=== PATIENT | male | born 1995 | race Two or more races ===

== ENCOUNTER 2019-01-27 16:10 | Inpatient (IN) ==
[2019-01-27] MEDS ORDERED: OPTIRAY 320 125ml IV PRN (17:26)
[2019-01-27 17:34] LABS: Basophils # (auto) 0.01 K/uL (0-0.2); Basophils % (auto) 0.1 %; Eosinophils # (auto) 0.18 K/uL (0-0.5); Eosinophils % (auto) 1.1 %; Hematocrit (blood only) 40.5 % (42-52); Hemoglobin 13.8 g/dL (14.0-18.0); Immature Granulocytes # (auto) 0.04 K/uL (0.00-0.02); Immature Granulocytes % (auto) 0.2 %; Lymphocytes # (auto) 1.16 K/uL (1.2-3.4); Lymphocytes % (auto) 7.2 %; Mean Corpuscular Hemoglobin 28.7 pg (25-34); Mean Corpuscular Hgb Conc 34.1 g/dL (32-36); Mean Corpuscular Volume 84.2 fL (80-100); Mean Platelet Volume 8.9 fL (7.4-10.4); Monocytes # (auto) 0.68 K/uL (0.11-0.59); Monocytes % (auto) 4.2 %; Neutrophils # (auto) 13.99 K/uL (1.4-6.5); Neutrophils % (auto) 87.2 %; Platelet Count 353 K/uL (130-400); RDW Coefficient of Variation 12.7 % (11.5-14.5); RDW Standard Deviation 38.7 fL (36.4-46.3); Red Blood Count 4.81 M/uL (4.7-6.1); White Blood Count 16.06 K/uL (4.8-10.8)
[2019-01-27 17:35] LABS: INR 1.2 (0.9-1.1)
--- NOTE | 2019-01-27 17:46 | CT Scan Report ---
CT angio chest PE protocol CT DOSE: 273.13 mGy.cm HISTORY: 23 years-old Male with Dyspnea, +dimer, Lingula pna vs abscess?. Acute shortness of breath with pneumonia TECHNIQUE: Multiple CTA images of the chest were obtained after the intravenous administration of 115 ml Optiray 320. Coronal and sagittal MIPS were obtained from the axial data set and were submitted for review. All measurements were obtained according to NASCET criteria. A dose lowering technique w as utilized adhering to the principles of ALARA. COMPARISON: None. FINDINGS: CTA: Heart is normal in size. Small pericardial effusion. Thoracic aorta is normal in course and caliber w ithout aneurysm or dissection. Patency of the imaged great vessels. Pulmonary arterial tree is opacif ied to the level of the subsegmental branches and demonstrates no focal filling defects suggest pulmo nary thromboembolic disease. Mild respiratory motion artifact limits evaluation of the left lung base . CT CHEST: Unremarkable thyroid. Residual thymic tissue of the anterior mediastinum. Pathologically enlarged pre vascular, AP window and left hilar lymph nodes measure up to 2.3 x 1.8 cm. There is no pneumothorax o r pleural effusion. There is a large area of multisegmental irregular consolidation involving the ant erior segment left upper lobe extending into the lingula which measures up to 8.0 x 6.9 x 11.2 cm and demonstrates multiple areas of central cavitation. There is an additional thick-walled cavitary nodu lar area of consolidation within the superior segment of the left lower lobe which measures 2.0 x 1.6 cm within the adjacent satellite consolidation. The large area of consolidation abuts the pleural montero rfaces and left mediastinal border. Right lung is generally clear. There is opacification of the infe rior lingular segmental bronchus. Adenopathy of the left epicardial fat pad distribution. Splenomegaly. Soft tissues are unremarkable. The bones appear to be intact. IMPRESSION: 1. Extensive multisegmental consolidation of the left upper lobe and lingula measures up to 11.2 cm i n greatest dimension and has multiple areas of central cavitation with additional smaller nodular are a of centrally cavitary consolidation noted involving the superior segment left lower lobe. Primary d ifferential consideration would include cavitary pneumonia such as post primary pulmonary tuberculosi s. Other possible noninfectious causative etiologies are considered less likely. Close clinical follo w-up is needed. 2. Pathologic mediastinal and left hilar adenopathy, likely reactive. 3. No pleural effusion or pneumothorax. 4. Splenomegaly. The above report was generated using voice recognition software. It may contain grammatical, syntax o r spelling errors. Electronically signed by: Tylor Gold M.D. 01/27/2019 5:45 PM
[2019-01-27 17:55] LABS: Alanine Aminotransferase 29 U/L (12-78); Albumin Level 3.6 gm/dl (3.4-5.0); Aspartate Aminotransferase 19 U/L (15-37); BUN Creatinine Ratio 11.2 (10-20); Blood Urea Nitrogen 11 mg/dl (7-18); Calcium 9.7 mg/dl (8.5-10.1); Carbon Dioxide 28 mmol/L (21-32); Chloride 99 mmol/L (98-107); Creatinine Clr Calc Pharmacy 90.5 ml/min; Est GFR (African American) 128.8; Est GFR (Non-African American) 111.1; Glucose 82 mg/dl (70-99); Potassium 3.5 mmol/L (3.5-5.1); Sodium 137 mmol/L (136-145)
[2019-01-27 18:00] LABS: Albumin Globulin Ratio 0.7 (0.9-2); Alkaline Phosphatase 107 U/L (45-117); Bilirubin,Total 0.4 mg/dl (0.2-1); Globulin 5.1 gm/dl (2.5-4.0); Total Protein 8.7 gm/dl (6.4-8.2); Troponin I < 0.015 ng/ml (0-0.045)
--- NOTE | 2019-01-27 19:41 | Emergency Department Note ---
Entered by Elisabeth Bella acting as a scribe for History of Present Illness General Chief complaint: Shortness of Breath/Dyspnea Stated complaint: CHEST PAINS,PNEUMONIA Source: patient Mode of arrival: ambulatory Limitations: no limitations History of Present Illness Onset (ago): month(s) 1 Location: chest Radiation: non-radiation Pain Consistency: + constant Relieved By: + none Exacerbated By: + none Associated symptoms: + chest pain, + cough, + loss of appetite and + other (- abdominal pain); no fever/chills Treatments prior to arrival: none The patient is a 23 year old male who presents to the ED with complaints of shortness of breath. He complains of a cough and chest pain for the past 1 to 2 months. The cough is non-productive. He denies any recent fevers or abdominal pain. He does admit to a loss of appetite. He denies any known allergies to medicine. He reports he had an X-Ray back home in [facility] at the end of the summer that was normal. He is a non-smoker. Earlier this afternoon, the patient went to [facility] on campus and had a Chest X-ray that was concerning for pneumonia, so he was referred here to the ED. Home Medications Home Medications Medication Instructions Recorded Confirmed Type Inhaler Prn 1 dose INHALATION UNKNOWN PRN 01/27/19 01/27/19 History Allergies Allergy/AdvReac Type Severity Reaction Status Date / Time No Known Drug Allergies Allergy Unknown Unverified 01/27/19 17:32 Past Med/Surg History Medical History Shellfish allergy Social History Feels Safe at Home: Yes Smoking Status: Never smoker Review of Systems See HPI for pertinent positives & negatives. and A total of 10 systems reviewed and were otherwise negative Physical Exam Vital Signs Vital Signs - 24 hr 01/27/19 16:15 01/27/19 16:45 01/27/19 16:46 Temperature 36.7 C Temperature Source Oral Sepsis Recent Fever Within 48 Hours No Sepsis New/Unexplained Change in Mental Status No Sepsis Action Taken by Nursing No Action Required Pulse Rate 92 H Respiratory Rate 20 Respiratory Effort / Characteristics Non-Labored Blood Pressure 137/81 Blood Pressure Mean 99 Blood Pressure Position Sitting Pulse Oximetry 96 97 Oxygen Delivery Method Room Air 01/27/19 16:47 Temperature Temperature Source Sepsis Recent Fever Within 48 Hours Sepsis New/Unexplained Change in Mental Status Sepsis Action Taken by Nursing Pulse Rate Respiratory Rate Respiratory Effort / Characteristics Blood Pressure Blood Pressure Mean Blood Pressure Position Pulse Oximetry 97 Oxygen Delivery Method Room Air GENERAL: Awake, alert, well-appearing, in no distress HENT: Normocephalic, atraumatic. EYES: Normal conjunctiva. Sclera non-icteric. NECK: Supple. No nuchal rigidity. RESPIRATORY: No wheezes. Normal respiratory effort. CARDIAC: Normal rate. Normal rhythm. Extremities warm and well perfused. GI: Soft, non-distended. No tenderness to palpation. RECTAL: Deferred. MUSCULOSKELETAL: Atraumatic. Chest examination reveals no tenderness. LOWER EXTREMITIES: Calves are equal size bilaterally and non-tender. No edema NEURO: Normal sensorium. No sensory or motor deficits noted. No facial droop. SKIN: Warm and dry. No rash or jaundice noted. Course 1621: The patient was evaluated in room C6 and a complete history and physical were performed. 175: I [facility] the patients [facility] The patient will be further evaluated. 175: I reevaluated the patient. He is resting comfortably. I discussed my recommendation that he be further evaluated by the hospital medicine team and he verbalized complete understanding and agreement. Consultations Consultation #1: I discussed the patients case with Jordan Barragan [facility]. The patient will be further evaluated. Administered Medications Ioversol (Optiray 320 125ml) 115 ml IV ONCE PRN PRN Reason: Interaction Checking Stop: 01/31/19 17:25 Last Admin: 01/27/19 17:26 Dose: 115 ml Documented by: [id number] Medical Decision Making Differential Diagnosis Differential diagnoses includes but is not limited to acute coronary syndrome, myocardial infarction, pericarditis, pulmonary embolus, aortic dissection, pneumonia, pneumothorax, musculoskeletal, shingles, esophageal. Medical Records Attestation: I reviewed the patient's medical records. Home Medications Current Medication List: was personally reviewed by me Laboratory Data Attestation: I reviewed the patient's lab results. Result diagrams: 01/27/19 17:01 01/27/19 17:01 Lab Results 01/27/19 01/27/19 01/27/19 Range/Units 17:01 17:01 17: WBC 16.06 H (4.8-10.8) K/uL RBC 4.81 (4.7-6.1) M/uL Hgb 13.8 L (14.0-18.0) g/dL Hct 40.5 L (42-52) % MCV 84.2 (80-100) fL MCH 28.7 (25-34) pg MCHC 34.1 (32-36) g/dL RDW Std Deviation 38.7 (36.4-46.3) fL RDW Coeff of Renetta 12.7 (11.5-14.5) % Plt Count 353 (130-400) K/uL MPV 8.9 (7.4-10.4) fL Immature Gran % (Auto) 0.2 % Neut % (Auto) 87.2 % Lymph % (Auto) 7.2 % [place] % (Auto) 4.2 % Eos % (Auto) 1.1 % Baso % (Auto) 0.1 % Immature Gran # (Auto) 0.04 H (0.00-0.02) K/uL Neut # (Auto) 13.99 H (1.4-6.5) K/uL Lymph # (Auto) 1.16 L (1.2-3.4) K/uL [place] # (Auto) 0.68 H (0.11-0.59) K/uL Eos # (Auto) 0.18 (0-0.5) K/uL Baso # (Auto) 0.01 (0-0.2) K/uL PT 12.0 (9.0-12.0) Seconds INR 1.2 H (0.9-1.1) Sodium 137 (136-145) mmol/L Potassium 3.5 (3.5-5.1) mmol/L Chloride 99 (98-107) mmol/L Carbon Dioxide 28 (21-32) mmol/L Anion Gap 10.0 (3-11) BUN 11 (7-18) mg/dl Creatinine 0.97 (0.6-1.4) mg/dl Est Cr Clr Drug Dosing 90.5 ml/min Est GFR ( Amer) 128.8 Est GFR (Non-Af Amer) 111.1 BUN/Creatinine Ratio 11.2 (10-20) Glucose 82 (70-99) mg/dl POC Lactic Acid Villa (0.90-1.70) mmol/L Calcium 9.7 (8.5-10.1) mg/dl Total Bilirubin 0.4 (0.2-1) mg/dl AST 19 (15-37) U/L ALT 29 (12-78) U/L Alkaline Phosphatase 107 (45-117) U/L Troponin I < 0.015 (0-0.045) ng/ml Total Protein 8.7 H (6.4-8.2) gm/dl Albumin 3.6 (3.4-5.0) gm/dl Globulin 5.1 H (2.5-4.0) gm/dl Albumin/Globulin Ratio 0.7 L (0.9-2) 01/27/19 Range/Units 17:15 WBC (4.8-10.8) K/uL RBC (4.7-6.1) M/uL Hgb (14.0-18.0) g/dL Hct (42-52) % MCV (80-100) fL MCH (25-34) pg MCHC (32-36) g/dL RDW Std Deviation (36.4-46.3) fL RDW Coeff of Renetta (11.5-14.5) % Plt Count (130-400) K/uL MPV (7.4-10.4) fL Immature Gran % (Auto) % Neut % (Auto) % Lymph % (Auto) % [place] % (Auto) % Eos % (Auto) % Baso % (Auto) % Immature Gran # (Auto) (0.00-0.02) K/uL Neut # (Auto) (1.4-6.5) K/uL Lymph # (Auto) (1.2-3.4) K/uL [place] # (Auto) (0.11-0.59) K/uL Eos # (Auto) (0-0.5) K/uL Baso # (Auto) (0-0.2) K/uL PT (9.0-12.0) Seconds INR (0.9-1.1) Sodium (136-145) mmol/L Potassium (3.5-5.1) mmol/L Chloride (98-107) mmol/L Carbon Dioxide (21-32) mmol/L Anion Gap (3-11) BUN (7-18) mg/dl Creatinine (0.6-1.4) mg/dl Est Cr Clr Drug Dosing ml/min Est GFR ( Amer) Est GFR (Non-Af Amer) BUN/Creatinine Ratio (10-20) Glucose (70-99) mg/dl POC Lactic Acid Villa 1.60 (0.90-1.70) mmol/L Calcium (8.5-10.1) mg/dl Total Bilirubin (0.2-1) mg/dl AST (15-37) U/L ALT (12-78) U/L Alkaline Phosphatase (45-117) U/L Troponin I (0-0.045) ng/ml Total Protein (6.4-8.2) gm/dl Albumin (3.4-5.0) gm/dl Globulin (2.5-4.0) gm/dl Albumin/Globulin Ratio (0.9-2) Imaging Data Radiologist's Impression: Radiology results as stated below per my review and the radiologist's interpretation: CT angio chest PE protocol CT DOSE: 273.13 mGy.cm HISTORY: 23 years-old Male with Dyspnea, +dimer, Lingula pna vs abscess?. Acute shortness of breath with pneumonia TECHNIQUE: Multiple CTA images of the chest were obtained after the intravenous administration of 115 ml Optiray 320. Coronal and sagittal MIPS were obtained from the axial data set and were submitted for review. All measurements were obtained according to NASCET criteria. A dose lowering technique was utilized adhering to the principles of ALARA. COMPARISON: None. FINDINGS: CTA: Heart is normal in size. Small pericardial effusion. Thoracic aorta is normal in course and caliber without aneurysm or dissection. Patency of the imaged great vessels. Pulmonary arterial tree is opacified to the level of the subsegmental branches and demonstrates no focal filling defects suggest pulmonary thromboembolic disease. Mild respiratory motion artifact limits evaluation of the left lung base. CT CHEST: Unremarkable thyroid. Residual thymic tissue of the anterior mediastinum. Pathologically enlarged prevascular, AP window and left hilar lymph nodes measure up to 2.3 x 1.8 cm. There is no pneumothorax or pleural effusion. There is a large area of multisegmental irregular consolidation involving the anterior segment left upper lobe extending into the lingula which measures up to 8.0 x 6.9 x 11.2 cm and demonstrates multiple areas of central cavitation. There is an additional thick-walled cavitary nodular area of consolidation within the superior segment of the left lower lobe which measures 2.0 x 1.6 cm within the adjacent satellite consolidation. The large area of consolidation abuts the pleural surfaces and left mediastinal border. Right lung is generally clear. There is opacification of the inferior lingular segmental bronchus. Adenopathy of the left epicardial fat pad distribution. Splenomegaly. Soft tissues are unremarkable. The bones appear to be intact. IMPRESSION: 1. Extensive multisegmental consolidation of the left upper lobe and lingula measures up to 11.2 cm in greatest dimension and has multiple areas of central cavitation with additional smaller nodular area of centrally cavitary consolidation noted involving the superior segment left lower lobe. Primary differential consideration would include cavitary pneumonia such as post primary pulmonary tuberculosis. Other possible noninfectious causative etiologies are considered less likely. Close clinical follow-up is needed. 2. Pathologic mediastinal and left hilar adenopathy, likely reactive. 3. No pleural effusion or pneumothorax. 4. Splenomegaly. The above report was generated using voice recognition software. It may contain grammatical, syntax or spelling errors. Electronically signed by: Tylor Gold M.D. 01/27/2019 5:45 PM ECG Data Attestation: I personally reviewed and interpreted this ECG as follows: Indication: SOB/dyspnea Rate (beats per minute): 80 Rhythm: sinus rhythm Findings: + other (Normal intervals, LVH changes); no PVC Blood Pressure Blood Pressure Findings: Elevated blood pressure Blood Pressure Disposition: further management by hospitalist AMBREEN Mcqueen Patient is a 23-year-old gentleman presenting today with concerns for pneumonia and possible abscess. Patient states for the past 2 to 3 months he has had a cough with some shortness of breath. Difficulty sleeping due to the pain and the cough. Emergency health service did a chest x-ray with concern for pneumonia and possible abscess and here for further evaluation. Patient is afe brile and not hypoxic upon initial evaluation. Patient has no significant medical history. Travel to [place] but symptoms started before that. Endorses weight loss. Outside chest x-ray noted with large left inguinal pna, ?cavity. Basic labs and blood cultures and lactate were obtained. Patient appear grossly septic. Concern for possible cancerous process versus pneumonia/TB versus abscess. CT of the chest was completed to exclude PE among those diagnoses. No significant lactate elevation. Patient does have a leukocytosis of 16. CT scan shows evidence of multisegmental consolidation left upper lobe and lingula measuring 11.2 cm with areas of cavitation. Concern for possible cavitary pneumonia. No evidence of PE. Discussed with radiology. Concern for tuberculosis. Placed in isolation. Hospitalist alerted. Will defer empiric antibiotics at this time pending further cultures given his stable status. Updated the patient. Impression & Plan Left upper lobe pneumonia, Concern about pulmonary TB without diagnosis Discharge Plan Visit Data Chief Complaint: Shortness of Breath/Dyspnea Stated Complaint: CHEST PAINS,PNEUMONIA ED Provider: Wilfred Yu Discharge Problem: Left upper lobe pneumonia, Concern about pulmonary TB without diagnosis Patient Disposition: Being Evaluated by Hospitalist Forms Stand Alone Forms: [facility] Prescriptions Prescriptions: No Action Inhaler Prn 0 mg 1 dose inhalation UNKNOWN PRN (Reason: Shortness Of Breath) RF: 0 Referrals Referrals: PCP,NO [Primary Care Provider] - The scribe's documentation has been prepared under my direction and personally reviewed by me in its entirety. I confirm that the note above accurately reflects all work, treatment, procedures, and medical decision making performed by me.
[2019-01-27] MEDS ORDERED: POTASSIUM CHLORIDE 20 MEQ TABCR PO STA (20:15)
[2019-01-27] MEDS ORDERED: MAGNESIUM CHLORIDE 64MG DELAYED REL TAB PO STA (20:15)
--- NOTE | 2019-01-27 21:03 | History & Physical Report ---
Date of Service January 27, 2019 Assessment & Plan (1) Left upper lobe pneumonia: 23-year-old male with no significant past history presents with 4 months of chest pain with inspiration and cough. Patient is a citizen of [place], no known sick contacts, but CT of the chest concerning for tuberculosis with left upper lobe consolidation and cavitary lesions. Pneumonia, concern for pulmonary TB Patient is nontoxic, white count within normal limits, afebrile CT showed left upper lobe consolidation cavitary lesions Infectious disease consulted, appreciate recommendations Will not be starting the patient on antibiotics until source is known N.p.o. for possible bronc tomorrow Continue supportive treatment: IV fluids, Tylenol for fever DVT prophylaxisSCDs, ambulation FENregular diet, n.p.o. after midnight CODE STATUSfull (2) Concern about pulmonary TB without diagnosis: History of Present Illness Primary Care Provider: NO PCP 23-year-old no significant past medical history presents with chest pain, worse with coughing. He states that the symptoms have been ongoing over the past 4 months. During this duration, he is also had significant weight loss and has had night sweats. He also describes a sore throat patient. Denies hemoptysis. Patient is a citizen of [place]. He is here as a student. He denies smoking whatsoeverno tobacco, marijuana, no electronic smoking devices. He lives with roommates. He denies any sick contacts or any other known sick individuals. Allergies Allergy/AdvReac Type Severity Reaction Status Date / Time No Known Drug Allergies Allergy Unknown Unverified 01/27/19 17:32 Home Medications Home Medications Medication Instructions Recorded Confirmed Type Inhaler Prn 1 dose INHALATION UNKNOWN PRN 01/27/19 01/27/19 History Past Med/Surg History Medical History Shellfish allergy Social History Feels Safe at Home: Yes Smoking Status: Never smoker Review of Systems Constitutional: + sweats, + fatigue, + weakness and + weight loss; no fever and no chills Eyes: no loss of peripheral vision and no worsening vision Ear, Nose, Mouth, Throat: + sore throat; no nasal discharge and no sinus pain/pressure Respiratory: + cough and + pain with cough; no hemoptysis, no sputum production and no wheezing Cardiovascular: + chest pain; no palpitations and no edema Gastrointestinal: no abdominal pain, no nausea and no vomiting Poor appetite Genitourinary: no dysuria and no nocturia Integumentary: + non-healing lesions (On back ) Physical Exam Constitutional: + ill appearing and + thin; no acute distress Eyes: PERRL, conjunctivae normal, anicteric sclerae ENMT: external ear and nose normal, oropharynx normal Neck: trachea midline, no thyromegaly Respiratory: normal respiratory effort, lungs clear to auscultation Auscultation: + rales (Left upper lung quintanilla) Cardiovascular: RRR, no murmur, no edema Gastrointestinal (Abdomen): normal bowel sounds, soft, nontender, no hepatosplenomegaly Musculoskeletal: no cyanosis or clubbing, extremities motor strength 5/5 Skin: + lesion (2 erythematous macules with ulceration and excoriation on back) Neurologic: PERRL, EOMI, accommodation nl, no face palsy, no dysarthria Psychiatric: A+Ox3, euthymic affect Results & Data Vital Signs (Past 12 Hours) Vital Signs Temp Pulse Resp BP Pulse Ox 01/27/19 16:47 97 01/27/19 16:46 97 01/27/19 16:15 36.7 C 92 H 20 137/81 96 Code Status & VTE Plan VTE Prophylaxis Plan VTE Prophylaxis will be ordered: Yes Supervising Physician Co-Signing Physician Notes Patient seen and examined, chart reviewed, case discussed with Dr. Blue and I agree with his assessment and plan as documented above. Briefly, patient is a 23-year-old male with no significant past medical or surgical history presenting with 4 months of chest discomfort, cough and weight loss. 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 He has been in this country for 3 years. Returns frequently to [place] [facility] on breaks. He lives [place] area in [place] [facility] [place]. No close personal contacts with tuberculosis, homelessness or incarceration. No personal history of homelessness or incarceration. Patient believes he was administered the BCG vaccine prior to coming to the [place]. He reports being seen by physician in [place] [facility] approximately 4 months ago and was told that he has a "bacterial infection". He was given pills which he completed. Does not feel like he fully recovered. Presently with no additional complaints On exam he is afebrile, slightly tachycardic at 103 bpm otherwise stable, respiratory rate of 20 saturating 96% on room air. No respiratory distress. No cough. No hemoptysis. Nontoxic in appearance Skin: 2 circular, well-circumscribed lesions on his back with skin flaking and erythema HEENT: Normocephalic atraumatic, pupils equal round reactive to light, neck supple, moist mucous membranes, dentition intact, trachea midline, no lymphadenopathy Heart: S1-S2 present, regular, tachycardic, no murmurs rubs or gallops Lungs: Equal air entry bilaterally, mildly diminished in left apex with faint crackles otherwise unremarkable Abdomen: Bowel sounds present, soft, nontender, nondistended Extremities: Warm, well-perfused, no clubbing/cyanosis/edema Labs and images reviewed. Significant for neutrophil predominant leukocytosis with WBC = 16.06 (he bands, neutrophils, low lymphocytes, high monocytes) normochromic normocytic anemia with hemoglobin = 13.8, hematocrit = 40.5, total protein and globulin CTA of the chest with extensive multisegmental consolidation of the left upper lobe and lingula measuring up to 11.2 cm in the greatest dimension with multiple areas of cavitation with additional smaller nodular area of centrally cavitary consolidation noted involving the superior segment of left lower lobe. Also with pathologic mediastinal left hilar adenopathy Assessment/plan. 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 Differential to include pulmonary tuberculosis, MAC, fungal infection, actinomyces, less likely nocardia, staph, malignancy -Admit to medical floor, airborne precautions -Sputum for AFB x3 -Pulmonary consultationappreciate assistance. We will keep n.p.o. for possible bronchoscopy -ID consultationappreciate assistance -Remainder of plan as above PG Care Time/CCT Total # of Minutes Spent Total Time Spent with Patient: Total time spent is greater than 50% in coordination of care (as documented) at patient's floor/unit and/or counseling patient: Resident Activity Tracking Resident Involvement: Resident Care Provided Care Provided: Adult [facility] Medicine
[2019-01-27] MEDS ORDERED: ACETAMINOPHEN 325 MG TAB PO PRN (22:27)
[2019-01-27] MEDS ORDERED: ONDANSETRON INJ 2 MG/ML 2 ML VIAL IV PRN (22:27)
[2019-01-27] MEDS ORDERED: POLYETHYLENE (MIRALAX) 17 GM PACK PO PRN (22:27)
[2019-01-27] MEDS: SODIUM CHLORIDE 0.9% 1000ML 1,000 ML IV SCH (23:51)
[2019-01-28] MEDS ORDERED: INFLUENZA VIRUS QUAD VACCINE 0.5 ML SYR IM ONE (01:00)
[2019-01-28] MEDS ORDERED: INFLUENZA ADMINISTRATION CHARGE ONE (01:00)
[2019-01-28] MEDS: SODIUM CHLORIDE 0.9% 1000ML 1,000 ML IV SCH ×2 (06:13→14:46)
[2019-01-28 08:05] LABS: Basophils # (auto) 0.03 K/uL (0-0.2); Basophils % (auto) 0.2 %; Eosinophils # (auto) 0.42 K/uL (0-0.5); Eosinophils % (auto) 3.4 %; Hematocrit (blood only) 37.2 % (42-52); Hemoglobin 12.8 g/dL (14.0-18.0); Immature Granulocytes # (auto) 0.03 K/uL (0.00-0.02); Immature Granulocytes % (auto) 0.2 %; Lymphocytes # (auto) 1.67 K/uL (1.2-3.4); Lymphocytes % (auto) 13.7 %; Mean Corpuscular Hemoglobin 28.8 pg (25-34); Mean Corpuscular Hgb Conc 34.4 g/dL (32-36); Mean Corpuscular Volume 83.8 fL (80-100); Mean Platelet Volume 8.5 fL (7.4-10.4); Monocytes # (auto) 1.06 K/uL (0.11-0.59); Monocytes % (auto) 8.7 %; Neutrophils # (auto) 9.02 K/uL (1.4-6.5); Neutrophils % (auto) 73.8 %; Platelet Count 332 K/uL (130-400); RDW Coefficient of Variation 12.8 % (11.5-14.5); RDW Standard Deviation 38.8 fL (36.4-46.3); Red Blood Count 4.44 M/uL (4.7-6.1); White Blood Count 12.23 K/uL (4.8-10.8)
[2019-01-28 08:31] LABS: BUN Creatinine Ratio 9.5 (10-20); Calcium 9.1 mg/dl (8.5-10.1); Creatinine Clr Calc Pharmacy 90.9 ml/min; Est GFR (African American) 124.1; Est GFR (Non-African American) 107.1; Potassium 4.5 mmol/L (3.5-5.1)
--- NOTE | 2019-01-28 09:25 | Infectious Disease Consult ---
Date of Consultation January 28, 2019 Assessment & Plan (1) Cavitary pneumonia: Highly concerning for TB. will check IGRA, uric acid and HIV due to concern for TB. Will order AFB sputum x 3 - not done to date. NPO for bronch, unsure if scheduled. Will hold abx until sputum cultures, AFB cultures obtained. Discussed at length with patient regarding need for isolation while TB diagnosis is being pursued, he is agreeable. I spoke with [facility] as well. Thursday, 01/31 is holiday and no [facility] employees will be available for ongoing med administration, etc until Thursday 02/01. He will likely need to remain inpatient until then. He is agreeable. will follow. History of Present Illness Attending Physician: Ebonie Sanchez MD pt admitted with 4 month h/o chest pain, intermittent cough, no hemoptysis, wt loss 10 lb in 1 month, intermittent night sweats and generalized malaise. Denies f/c at home. 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 He denies sick contacts. He is originally from [facility] - family is there. He denies any previous testing for TB as screen in the past. He denies any known TB contacts. he is on no meds, NKDA. currently on no abx. blood cultures pending, wbc 16 in ER, 12 today. CTA done in ER and revealed large L lung consolidation [id number] with several areas of cavitation. Also several enlarged nodes. he denies any lymphadenopathy. afebrile since admission. NPO for possible bronch. LFTs normal. Currently no cp, but admits to pleuritic cp, no sob, no juarez, no abd pain, no n/v/d. no gu symptoms. Allergies Allergy/AdvReac Type Severity Reaction Status Date / Time No Known Drug Allergies Allergy Unknown Unverified 01/27/19 17:32 shellfish derived Allergy Swelling Verified 01/28/19 06:23 of Lip/Tongue/Throat Home Medications Home Medications Medication Instructions Recorded Confirmed Type Inhaler Prn 1 dose INHALATION UNKNOWN PRN 01/27/19 01/27/19 History Patient History Medical History Shellfish allergy Social History (Reviewed 01/28/19 @ 09:21 by WILLIAM Pabon Preferred Language: Occitan Communication Ability: Effective Edger Feeder Required: No Beliefs That Will Affect Care: None Current Living Situation: Other Current Living Situation Comment: Lives in an apartment complex with roommates. Other Information That Helps Us Care for You: No Feels Safe at Home: Yes Smoking Status: Never smoker Hx Alcohol Use: No Hx Substance Use: No Review of Systems Review of Systems: All systems reviewed & are unremarkable except as noted in HPI & below Physical Exam Constitutional: WD/WN, vitals as above Eyes: PERRL, conjunctivae normal, anicteric sclerae ENMT: external ear and nose normal, oropharynx normal Neck: normal visual inspection Respiratory: normal respiratory effort, lungs clear to auscultation Cardiovascular: RRR, no murmur, no edema Gastrointestinal (Abdomen): normal bowel sounds, soft, nontender, no hepatosplenomegaly Musculoskeletal: no cyanosis or clubbing, extremities motor strength 5/5 Skin: no rashes, warm and dry Psychiatric: A+Ox3, euthymic affect Results & Data Vital Signs (Past 12 Hours) Vital Signs Temp Pulse Resp BP Pulse Ox 01/28/19 07:24 36.8 C 78 17 107/64 98 01/27/19 21:40 37.1 C 80 16 118/81 01/27/19 21:20 103 H 20 130/78 96 PG Care Time/CCT Total # of Minutes Spent Total Time Spent with Patient: Total time spent is greater than 50% in coordination of care (as documented) at patient's floor/unit and/or counseling patient:
[2019-01-28] MEDS ORDERED: PIPERACILL/TAZOBAC CONSULT ACTIVE PRN (10:37)
[2019-01-28] MEDS ORDERED: VANCOMYCIN CONSULT ACTIVE PRN (10:37)
[2019-01-28] MEDS ORDERED: PIPERACILLIN/TAZOBACTAM 3.375 GM in DEXTROSE 5% 100 ML IV ONE (10:45)
[2019-01-28] MEDS ORDERED: VANCOMYCIN HCL 1,500 MG in SODIUM CHLORIDE 0.9% 500 ML IV ONE (11:00)
--- NOTE | 2019-01-28 11:42 | Pulmonary Consultation ---
Date of Consultation January 28, 2019 Assessment & Plan (1) Cavitary pneumonia: This is a 23-year-old male from [place] [facility] with a 4-month history of chest pain and pneumonia. He was treated for pneumonia in [place] with tablets. Treatment course was unknown. Patient Presented to the emergency department for evaluation secondary to urging from mother who is currently in [place] [facility].Patient was found to have multiple cavitary lesions and left upper lobe involvement on CT scan of the chest. Infectious diseases on board and following the patient. Department of Health is aware of possible tuberculosis. MorningSputum for AFB x3 has been ordered QuantiFERON gold has been sent to reference lab for evaluation Immunology and serology testing has been requested to rule out vasculitis At this point we will defer on bronchoscopy until the AFB x3 from sputum has been ruled out as negative Start Zosyn and vancomycin Check sputum culture and sensitivity No hypoxia No significant B type symptoms Will continue to follow expectantly Thank you very much for including us in the care of this patient. We will continue to follow along. Please refer to Dr. Jimenes's addendum for further recommendations. Supervising Physician Co-Signing Physician Notes Await AFB smears. If negative, will proceed with bronchoscopy with BAL and possible biopsy. Still a possibility of malignancy, but less likely. Please send PERRI screen, C-ANCA and U/A to rule out possibility of vasculitis. Would treat for GPC and anaerobic organisms as well with Zosyn. Possibility of atypical infections such as nocardia, actino, etc remains. Airborne precautions required. History of Present Illness Attending Physician: Ebonie Sanchez MD History of Present Illness Attending: Dr. Jimenes Patient seen and examined with Dr. Jimenes.This is a 23-year-old male from [place] [facility] that is currently at [employer] as a student. He has been in [facility] for 3 years with intermittent trips back to [facility]. He reports a 4-month history of chest pain. This was worked up in [place] and was negative for any cardiac etiology.Patient states that he was started on tablets for what appeared to be a bacterial infection, but he does not know what those tablets were. He claims he had BCG vaccination in [place] [facility].He has no family history of personal history of tuberculosis.He denies any hemoptysis, fever, chills, sweats night sweats.He has no specific productive sputum. He still has intermittent chest pain which is over the left upper lobe.He has no other acute complaints. On exam he has no lymphadenopathy and patient denies any history of lymphadenopathy.He has no epistaxis and no hematuria.The patient does have a 5 kg weight loss over the last 30 days. He reports this being a result of poor appetite. He has no nausea or vomiting or diarrhea.The patient has no other sick contacts. Allergies Allergy/AdvReac Type Severity Reaction Status Date / Time No Known Drug Allergies Allergy Unknown Unverified 01/27/19 17:32 shellfish derived Allergy Swelling Verified 01/28/19 06:23 of Lip/Tongue/Throat Home Medications Home Medications Medication Instructions Recorded Confirmed Type Inhaler Prn 1 dose INHALATION UNKNOWN PRN 01/27/19 01/27/19 History Patient History Medical History Shellfish allergy No significant past medical history Surgical History No history of previous surgery Family History Other Family history non-contributory Social History Preferred Language: Irish Communication Ability: Effective Manager Primary Care Required: No Beliefs That Will Affect Care: None Current Living Situation: Other Current Living Situation Comment: Lives in an apartment complex with roommates. Other Information That Helps Us Care for You: No Feels Safe at Home: Yes Smoking Status: Never smoker Hx Alcohol Use: No Hx Substance Use: No Immunizations: BCG in [place] Review of Systems Review of Systems: All systems reviewed & are unremarkable except as noted in HPI & below Physical Exam Physical Exam: GENERAL : No acute distress. Pleasant EYES: No icterus, gaze conjugate NOSE: No evidence of epistaxis MOUTH: No lesions or candidiasis. Mucosa moist.Tongue midline. NECK: Supple. No cervical lymphadenopathy LUNGS: Minimal rhonchi in the left upper lobe. No basilar crackles. No bronchospasm appreciated. HEART: Regular, rate controlled ABDOMEN: Soft, NT, ND, BS Present EXTREMITIES: No LE edema, pedal pulses intact. No appreciation of lymphadenopathy in the axillary inguinal or supraclavicular regions. NEURO: A&OX3 Results & Data Vital Signs (Past 12 Hours) Vital Signs Temp Pulse Resp BP Pulse Ox 01/28/19 07:24 36.8 C 78 17 107/64 98 Laboratory Results 01/28/19 07:55 01/28/19 07:[address] angio chest PE protocol CT DOSE: 273.13 mGy.cm HISTORY: 23 years-old Male with Dyspnea, +dimer, Lingula pna vs abscess?. Acute shortness of breath with pneumonia TECHNIQUE: Multiple CTA images of the chest were obtained after the intravenous administration of 115 ml Optiray 320. Coronal and sagittal MIPS were obtained from the axial data set and were submitted for review. All measurements were ob tained according to NASCET criteria. A dose lowering technique was utilized adhering to the principles of ALARA. COMPARISON: None. FINDINGS: CTA: Heart is normal in size. Small pericardial effusion. Thoracic aorta is normal in course and caliber without aneurysm or dissection. Patency of the imaged great vessels. Pulmonary arterial tree is opacified to the level of the subsegmental branches and demonstrates no focal filling defects suggest pulmonary thromboembolic disease. Mild respiratory motion artifact limits evaluation of the left lung base. CT CHEST: Unremarkable thyroid. Residual thymic tissue of the anterior mediastinum. Pathologically enlarged prevascular, AP window and left hilar lymph nodes measure up to 2.3 x 1.8 cm. There is no pneumothorax or pleural effusion. There is a large area of multisegmental irregular consolidation involving the anterior segment left upper lobe extending into the lingula which measures up to 8.0 x 6.9 x 11.2 cm and demonstrates multiple areas of central cavitation. There is an additional thick-walled cavitary nodular area of consolidation within the superior segment of the left lower lobe which measures 2.0 x 1.6 cm within the adjacent satellite consolidation. The large area of consolidation abuts the pleural surfaces and left mediastinal border. Right lung is generally clear. There is opacification of the inferior lingular segmental bronchus. Adenopathy of the left epicardial fat pad distribution. Splenomegaly. Soft tissues are unremarkable. The bones appear to be intact. IMPRESSION: 1. Extensive multisegmental consolidation of the left upper lobe and lingula measures up to 11.2 cm in greatest dimension and has multiple areas of central cavitation with additional smaller nodular area of centrally cavitary consolidation noted involving the superior segment left lower lobe. Primary differential consideration would include cavitary pneumonia such as post primary pulmonary tuberculosis. Other possible noninfectious causative etiologies are considered less likely. Close clinical follow-up is needed. 2. Pathologic mediastinal and left hilar adenopathy, likely reactive. 3. No pleural effusion or pneumothorax. 4. Splenomegaly. Electronically signed by: Tylor Gold M.D. 01/27/2019 5:45 PM PG Care Time/CCT Total # of Minutes Spent Total Time Spent with Patient: Total time spent is greater than 50% in coordinat ion of care (as documented) at patient's floor/unit and/or counseling patient:45
--- NOTE | 2019-01-28 12:37 | Pharmacy Report ---
Pharmacy Abx Initial Consult - Date of Service January 28, 2019 - Pharmacy Dosing Scope Date of Consult: 01/28/19 Consultation requested by: Dr. Sanchez Pharmacy is consulted to initiate Vancomycin IV dosing therapy, order appropriate labs and adjust drug dose/frequency. - Subjective The patient is a 23 year old M admitted on 01/27/19 19:21 with 4 month history of chest pain and cough. 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 He has been in [facility] for 3 years with intermittent trips back to [facility]. Patient states that he was started on tablets for what appeared to be a bacterial infection, but he does not know what those tablets were. - Objective Height: 5 ft 6 in Weight: 55 kg Vital Signs (Past 12hrs): Vital Signs Temp Pulse Resp BP Pulse Ox 01/28/19 07:24 36.8 C 78 17 107/64 98 Lab Results (24hrs): Laboratory Tests (24 Hours) 01/28/19 01/28/19 01/27/19 07:55 07:55 17:01 WBC 12.23 H Neut # (Auto) 9.02 H Creatinine 1.00 0.97 Est Cr Clr Drug Dosing 90.9 90.5 01/27/19 17:01 WBC 16.06 H Neut # (Auto) 13.99 H Creatinine Est Cr Clr Drug Dosing Micro Results: 01/27/19 17:01 Aerobic Blood Culture - Pending Blood Anaerobic Blood Culture - Pending 01/27/19 16:44 Aerobic Blood Culture - Pending Blood Anaerobic Blood Culture - Pending - Risk Factors for Resistance * Antimicrobial use within the last 90 days - pt states using tablets, likely antibiotic, but does not know what it was - Assessment & Plan Assessment 23 year old M with left upper lobe pneumonia, possible TB. ID consult, pulm consult. Blood cultures pending. HIV negative TB tests pending Plan Vancomycin and Zosyn for treatment of pneumonia, possible TB. Vancomycin IV * Estimated PK Parameters: Vd 0.7 L/kg, Hermes 0.079 hr-1, t1/2 8.7 hr * Loading dose: 1500 mg (27 mg/kg) * Maintenance dose: 1000 mg IV ( 18mg/kg) every 8 hours * Goal trough level for pneumonia : 15 to 20 mcg/mL * Trough level ordered for 01/29/19 Piperacillin/tazobactam * 3.375 g bolus administered over 30 minutes, then 3.375 g IV extended infusion every 8 hours for CrCl greater than 20 mL/min Pharmacy will continue to follow and will adjust dose/frequency as necessary. Thank you.
--- NOTE | 2019-01-28 14:50 | Hospitalist Progress Note ---
Date of Service January 28, 2019 Assessment & Plan (1) Cavitary pneumonia: Pt is a 23-year-old male with a history of eczema who presents with 4 months of chest pain with inspiration and cough. Patient is a citizen of [place], no known sick contacts, but CT of the chest with left upper lobe consolidation and cavitary lesions. Concern for pulmonary TB vs other anaerobic infection, Nocardia, Actinomyces, Vasculitis, Malignancy in differential Has a h/o BCG vaccine in childhood and exposure to a Grandfather with active TB years ago Here with night sweats, weight loss, leukocytosis, no known fevers Also with splenomegaly and skin rash on back, unclear if related HIV neg -collect sputum for AFB smear x 3 -check Quantiferon Gold -Pulm consult appreciated-no bronch unless AFB sputum negative. Also recommends checking sputum culture, PERRI, C-ANCA, UA -start Zosyn and Vanco to cover for anaerobic organisms, MRSA -Appreciate ID consultation -follow BCxs -follow CBC Continue supportive treatment, Tylenol for fever -Health Dept contacted by ID -airborne precautions (2) Rash: 2 maculopapular patches on back x 3 months with pruritis Appear rounded and atypical for eczema -discussed with DERM, Dr. Hernández-he will see the patient on Thursday-will place consult Sun evening -no signs of cellulitis -could be fungal, Nocardia, inflammatory? (3) Leukocytosis: WBC count 16 on admission and now down to 12k, improving -follow CBC Likely related to illness (4) Concern about pulmonary TB without diagnosis: as above -checking TB Gold, AFB (5) Splenomegaly: Noted on CT Chest Cannot palpate spleen on exam Likely related to ongoing likely infectious process but could be related to lymphoma, TB, autoimmune disorder, viral infection -follow clinically, consider US of spleen (6) DVT prophylaxis: DVT prophylaxisSCDs, ambulation Dispo-remain hospitalized until TB ruled out Subjective Pt reports some cough but not bringing up sputum, no hemoptysis. He reports drenching night sweats for several months. No headache or vision changes. He does report +sore throat. No neck pain. Denies SOB, no abd pain, no difficulty with urinating or moving his bowels. He is eating well. He has had a skin rash that is itchy on his back for several months that he has been scratching and applying moisturizer. He has a h/o eczema. Denies sexual activity ever. Denies IVDU or any kind of drug use, no smoking history. Studying [employer]. No other travel besides back and forth to [facility] Review of Systems Review of Systems: All systems reviewed & are unremarkable except as noted in HPI & below Physical Exam Constitutional: + thin; no acute distress Eyes: PERRL, conjunctivae normal, anicteric sclerae no anisocoria and no nystagmus ENMT: external ear and nose normal, oropharynx normal Neck: trachea midline, no thyromegaly Respiratory: normal respiratory effort; no labored breathing, no cough and not tachypneic Auscultation: + diminished lung sounds (left upper lung field); no crackles, no rhonchi and no wheezes Cardiovascular: RRR, no murmur, no edema Gastrointestinal (Abdomen): normal bowel sounds, soft, nontender, no hepatosplenomegaly Musculoskeletal: Extremities: extremities normal to inspection; no cyanosis and no clubbing Skin: + rash (2 maculopapular patches on mid back approx 2-3cm in diameter,hyperpigmented) Neurologic: moves all extremities and awake; no focal motor deficits Psychiatric: A+Ox3, euthymic affect Lymphatic: no cervical or axillary lymphadenopathy no preauricular lymphadenopathy Results & Data Vital Signs (Past 12 Hours) Vital Signs Temp Pulse Resp BP Pulse Ox 01/28/19 07:24 36.8 C 78 17 107/64 98 Laboratory Results 01/28/19 01/28/19 01/28/19 Range/Units 18:00 13:25 10:38 WBC (4.8-10.8) K/uL RBC (4.7-6.1) M/uL Hgb (14.0-18.0) g/dL Hct (42-52) % MCV (80-100) fL MCH (25-34) pg MCHC (32-36) g/dL RDW Std Deviation (36.4-46.3) fL RDW Coeff of Renetta (11.5-14.5) % Plt Count (130-400) K/uL MPV (7.4-10.4) fL Immature Gran % (Auto) % Neut % (Auto) % Lymph % (Auto) % Atlantic % (Auto) % Eos % (Auto) % Baso % (Auto) % Immature Gran # (Auto) (0.00-0.02) K/uL Neut # (Auto) (1.4-6.5) K/uL Lymph # (Auto) (1.2-3.4) K/uL Atlantic # (Auto) (0.11-0.59) K/uL Eos # (Auto) (0-0.5) K/uL Baso # (Auto) (0-0.2) K/uL Sodium (136-145) mmol/L Potassium (3.5-5.1) mmol/L Chloride (98-107) mmol/L Carbon Dioxide (21-32) mmol/L Anion Gap (3-11) BUN (7-18) mg/dl Creatinine (0.6-1.4) mg/dl Est Cr Clr Drug Dosing ml/min Est GFR ( Amer) Est GFR (Non-Af Amer) BUN/Creatinine Ratio (10-20) Glucose (70-99) mg/dl Uric Acid (2.6-7.2) mg/dl Calcium (8.5-10.1) mg/dl Urine Color Yellow Urine Appearance Clear (Clear) Urine pH 7.5 (4.5-7.5) Ur Specific Davidson 1.017 (1.000-1.030) Urine Protein Negative (Negative) Urine Glucose (UA) Negative (Negative) Urine Ketones Negative (Negative) Urine Blood Negative (Negative) Urine Nitrite Negative (Negative) Urine Bilirubin Negative (Negative) Urine Urobilinogen Negative (Negative) Ur Leukocyte Esterase Negative (Negative) Nasal Screen MRSA (PCR) Negative (Negative) ANCA Pending HIV 1&2 Ab/P24 Ag 4thGn (Neg) TB Test (QFT) Gold Plus TB Test (QFT) Nil TB Test Mitogen - Nil TB Test Ag - Nil 1 TB Test Ag - Nil 2 01/28/19 01/28/19 01/28/19 Range/Units 10:38 10:38 10:38 WBC (4.8-10.8) K/uL RBC (4.7-6.1) M/uL Hgb (14.0-18.0) g/dL Hct (42-52) % MCV (80-100) fL MCH (25-34) pg MCHC (32-36) g/dL RDW Std Deviation (36.4-46.3) fL RDW Coeff of Renetta (11.5-14.5) % Plt Count (130-400) K/uL MPV (7.4-10.4) fL Immature Gran % (Auto) % Neut % (Auto) % Lymph % (Auto) % Atlantic % (Auto) % Eos % (Auto) % Baso % (Auto) % Immature Gran # (Auto) (0.00-0.02) K/uL Neut # (Auto) (1.4-6.5) K/uL Lymph # (Auto) (1.2-3.4) K/uL Atlantic # (Auto) (0.11-0.59) K/uL Eos # (Auto) (0-0.5) K/uL Baso # (Auto) (0-0.2) K/uL Sodium (136-145) mmol/L Potassium (3.5-5.1) mmol/L Chloride (98-107) mmol/L Carbon Dioxide (21-32) mmol/L Anion Gap (3-11) BUN (7-18) mg/dl Creatinine (0.6-1.4) mg/dl Est Cr Clr Drug Dosing ml/min Est GFR ( Amer) Est GFR (Non-Af Amer) BUN/Creatinine Ratio (10-20) Glucose (70-99) mg/dl Uric Acid 7.0 (2.6-7.2) mg/dl Calcium (8.5-10.1) mg/dl Urine Color Urine Appearance (Clear) Urine pH (4.5-7.5) Ur Specific Davidson (1.000-1.030) Urine Protein (Negative) Urine Glucose (UA) (Negative) Urine Ketones (Negative) Urine Blood (Negative) Urine Nitrite (Negative) Urine Bilirubin (Negative) Urine Urobilinogen (Negative) Ur Leukocyte Esterase (Negative) Nasal Screen MRSA (PCR) (Negative) ANCA HIV 1&2 Ab/P24 Ag 4thGn Neg (Neg) TB Test (QFT) Gold Plus Pending TB Test (QFT) Nil Pending TB Test Mitogen - Nil Pending TB Test Ag - Nil 1 Pending TB Test Ag - Nil 2 Pending 01/28/19 01/28/19 Range/Units 07:55 07:55 WBC 12.23 H (4.8-10.8) K/uL RBC 4.44 L (4.7-6.1) M/uL Hgb 12.8 L (14.0-18.0) g/dL Hct 37.2 L (42-52) % MCV 83.8 (80-100) fL MCH 28.8 (25-34) pg MCHC 34.4 (32-36) g/dL RDW Std Deviation 38.8 (36.4-46.3) fL RDW Coeff of Renetta 12.8 (11.5-14.5) % Plt Count 332 (130-400) K/uL MPV 8.5 (7.4-10.4) fL Immature Gran % (Auto) 0.2 % Neut % (Auto) 73.8 % Lymph % (Auto) 13.7 % Atlantic % (Auto) 8.7 % Eos % (Auto) 3.4 % Baso % (Auto) 0.2 % Immature Gran # (Auto) 0.03 H (0.00-0.02) K/uL Neut # (Auto) 9.02 H (1.4-6.5) K/uL Lymph # (Auto) 1.67 (1.2-3.4) K/uL Atlantic # (Auto) 1.06 H (0.11-0.59) K/uL Eos # (Auto) 0.42 (0-0.5) K/uL Baso # (Auto) 0.03 (0-0.2) K/uL Sodium 139 (136-145) mmol/L Potassium 4.5 D (3.5-5.1) mmol/L Chloride 106 (98-107) mmol/L Carbon Dioxide 30 (21-32) mmol/L Anion Gap 4.0 (3-11) BUN 10 (7-18) mg/dl Creatinine 1.00 (0.6-1.4) mg/dl Est Cr Clr Drug Dosing 90.9 ml/min Est GFR ( Amer) 124.1 Est GFR (Non-Af Amer) 107.1 BUN/Creatinine Ratio 9.5 L (10-20) Glucose 93 (70-99) mg/dl Uric Acid (2.6-7.2) mg/dl Calcium 9.1 (8.5-10.1) mg/dl Urine Color Urine Appearance (Clear) Urine pH (4.5-7.5) Ur Specific Davidson (1.000-1.030) Urine Protein (Negative) Urine Glucose (UA) (Negative) Urine Ketones (Negative) Urine Blood (Negative) Urine Nitrite (Negative) Urine Bilirubin (Negative) Urine Urobilinogen (Negative) Ur Leukocyte Esterase (Negative) Nasal Screen MRSA (PCR) (Negative) ANCA HIV 1&2 Ab/P24 Ag 4thGn (Neg) TB Test (QFT) Gold Plus TB Test (QFT) Nil TB Test Mitogen - Nil TB Test Ag - Nil 1 TB Test Ag - Nil 2 PG Care Time/CCT Total # of Minutes Spent Total Time Spent with Patient: Total time spent is greater than 50% in coordination of care (as documented) at patient's floor/unit and/or counseling patient:
[2019-01-28] MEDS: PIPERACILLIN/TAZOBACTAM 3.375 GM in DEXTROSE 5% 100 ML IV SCH (16:11)
[2019-01-28] MEDS: VANCOMYCIN HCL 1,000 MG in SODIUM CHLORIDE 0.9% 250 ML IV SCH (18:17)
[2019-01-28 20:15] LABS: Appearance Urine Clear (Clear); Bilirubin Urine Negative (Negative); Blood Urine Negative (Negative); Color Urine Yellow; Glucose Urine UA Negative (Negative); Ketones Urine Negative (Negative); Leukocyte Esterase Urine Negative (Negative); Nitrite Urine Negative (Negative); Protein Urine Negative (Negative); Specific Gravity Urine 1.017 (1.000-1.030); Urobilinogen Urine Negative (Negative); pH Urine 7.5 (4.5-7.5)
[2019-01-29] MEDS: PIPERACILLIN/TAZOBACTAM 3.375 GM in DEXTROSE 5% 100 ML IV SCH ×4 (00:25→23:00)
[2019-01-29] MEDS: SODIUM CHLOR 7% 4 ML NEB INH SCH ×4 (01:28→20:51)
[2019-01-29] MEDS: SODIUM CHLORIDE 0.9% 1000ML 1,000 ML IV SCH ×2 (01:55→08:14)
[2019-01-29] MEDS: VANCOMYCIN HCL 1,000 MG in SODIUM CHLORIDE 0.9% 250 ML IV SCH ×2 (01:57→10:12)
[2019-01-29] MEDS ORDERED: VANCOMYCIN TROUGH ONE (09:30)
[2019-01-29 09:35] LABS: Basophils # (auto) 0.01 K/uL (0-0.2); Basophils % (auto) 0.1 %; Eosinophils # (auto) 0.39 K/uL (0-0.5); Eosinophils % (auto) 2.8 %; Hematocrit (blood only) 37.5 % (42-52); Hemoglobin 12.5 g/dL (14.0-18.0); Immature Granulocytes # (auto) 0.03 K/uL (0.00-0.02); Immature Granulocytes % (auto) 0.2 %; Lymphocytes # (auto) 1.07 K/uL (1.2-3.4); Lymphocytes % (auto) 7.7 %; Mean Corpuscular Hgb Conc 33.3 g/dL (32-36); Mean Corpuscular Volume 83.9 fL (80-100); Mean Platelet Volume 8.7 fL (7.4-10.4); Monocytes # (auto) 1.04 K/uL (0.11-0.59); Monocytes % (auto) 7.5 %; Neutrophils # (auto) 11.29 K/uL (1.4-6.5); Neutrophils % (auto) 81.7 %; Platelet Count 276 K/uL (130-400); RDW Coefficient of Variation 12.8 % (11.5-14.5); RDW Standard Deviation 38.8 fL (36.4-46.3); Red Blood Count 4.47 M/uL (4.7-6.1); White Blood Count 13.83 K/uL (4.8-10.8)
[2019-01-29 09:52] LABS: Albumin Level 2.8 gm/dl (3.4-5.0); BUN Creatinine Ratio 5.9 (10-20); Calcium 8.6 mg/dl (8.5-10.1); Creatinine Clr Calc Pharmacy 96.7 ml/min; Est GFR (African American) 133.8; Est GFR (Non-African American) 115.4; Potassium 3.8 mmol/L (3.5-5.1)
[2019-01-29 09:55] LABS: Albumin Globulin Ratio 0.7 (0.9-2); Bilirubin,Total 0.4 mg/dl (0.2-1); Globulin 3.9 gm/dl (2.5-4.0); Total Protein 6.7 gm/dl (6.4-8.2)
--- NOTE | 2019-01-29 10:16 | Pharmacy Report ---
Pharmacy Abx Dose Short Note - Date of Service January 29, 2019 - Assessment & Plan Assessment 23 year old M receiving EMPIRIC vancomycin and Zosyn for treatment of cavitary pneumonia Per ID - highly suspicious for TB (TB tests pending) Day # 2 of antimicrobial therapy. Blood cultures x 2 (01/27) - no growth to date MRSA nasal swab - negative (will await sputum culture) Plan Vancomycin * Trough level of 17.2 mcg/mL is therapeutic * Continue dose of 1000 mg IV every 8 hours * Goal trough level for pneumonia : 15 to 20 mcg/mL * Follow-up trough level ordered for: 01/30/19 @0930 Zosyn * Continue current regimen of 3.375 g IV q8h * Appropriate based on BMI and CrCl Pharmacy will continue to follow and will adjust dose/frequency as necessary. Thank you.
[2019-01-29] MEDS ORDERED: SODIUM CHLOR 7% 4 ML NEB INH SCH (13:30)
--- NOTE | 2019-01-29 14:30 | Hospitalist Progress Note ---
Date of Service January 29, 2019 Assessment & Plan (1) Cavitary pneumonia: Pt is a 23-year-old male with a history of eczema who presents with 4 months of chest pain with inspiration and cough. Patient is a citizen of [place], no known sick contacts, but CT of the chest with left upper lobe consolidation and cavitary lesions. Concern for pulmonary TB vs other anaerobic infection, Nocardia, Actinomyces, Vasculitis, Malignancy in differential Has a h/o BCG vaccine in childhood and exposure to a Grandfather with active TB 10 years ago Here with night sweats, weight loss, leukocytosis, no known fevers Also with splenomegaly and skin rash on back, unclear if related HIV neg -collect sputum for AFB smear x 3-still has not been collected and saline nebs have not been given for unclear reasons--> discussed with RN and she has contacted RT -Quantiferon Gold pending -Pulm consult appreciated-no bronch unless AFB sputum negative. Also recommends checking sputum culture, PERRI, C-ANCA, UA -continue Zosyn and Vanco to cover for anaerobic organisms, MRSA--> MRSA swab neg so will dc Vanco -Appreciate ID consultation -follow BCxs-NGTD -follow CBC Continue supportive treatment, Tylenol for fever -Health Dept contacted by ID -airborne precautions (2) Rash: 2 maculopapular patches on back x 3 months with pruritis---> he has now excoriated off the papular portions and has some oozing of blood from lesions Appear rounded and atypical for eczema -discussed with DERM, Dr. Hernández-he will see the patient on Thursday-will place consult Sun evening -no signs of cellulitis -could be fungal, Nocardia, inflammatory? -defer to DERM to see if needs biopsy -will cover with Optifoam due to open wounds (3) Leukocytosis: WBC count 16 on admission and now down to 13k, improving but stable -follow CBC Likely related to illness (4) Concern about pulmonary TB without diagnosis: as above -checking TB Gold, AFB (5) Splenomegaly: Noted on CT Chest Cannot palpate spleen on exam Likely related to ongoing likely infectious process but could be related to lymphoma, TB, autoimmune disorder, viral infection -follow clinically, consider US of spleen (6) DVT prophylaxis: DVT prophylaxisSCDs, ambulation Dispo-remain hospitalized until TB ruled out Subjective Pt feeling down in his mood. Otherwise not coughing. He never got his saline nebs for sputum production Denies chest pain, not SOB, not lightheaded No abd pain or diarrhea. His appetite is down Review of Systems Review of Systems: All systems reviewed & are unremarkable except as noted in HPI & below Physical Exam Constitutional: + thin; no acute distress Eyes: + anicteric sclerae ENMT: external ear and nose normal, oropharynx normal Neck: trachea midline, no thyromegaly Respiratory: normal respiratory effort; no labored breathing, no cough and not tachypneic Auscultation: + diminished lung sounds (left upper lung field); no crackles, no rhonchi and no wheezes Cardiovascular: RRR, no murmur, no edema Gastrointestinal (Abdomen): normal bowel sounds, soft, nontender, no he patosplenomegaly Musculoskeletal: Extremities: extremities normal to inspection; no cyanosis and no clubbing Skin: + rash (2 macular patches on mid back approx 2-3cm in diameter,now excoriated) Neurologic: moves all extremities and awake; no focal motor deficits Psychiatric: Orientation: alert, oriented to person and cooperative Affect: + depressed affect Lymphatic: no cervical or axillary lymphadenopathy no preauricular lymphadenopathy Results & Data Vital Signs (Past 12 Hours) Vital Signs Temp Pulse Resp BP Pulse Ox 01/29/19 07:14 36.7 C 92 H 20 101/63 98 Laboratory Results 01/29/19 01/29/19 01/29/19 Range/Units 09:17 09:17 09:17 WBC 13.83 H (4.8-10.8) K/uL RBC 4.47 L (4.7-6.1) M/uL Hgb 12.5 L (14.0-18.0) g/dL Hct 37.5 L (42-52) % MCV 83.9 (80-100) fL MCH 28.0 (25-34) pg MCHC 33.3 (32-36) g/dL RDW Std Deviation 38.8 (36.4-46.3) fL RDW Coeff of Renetta 12.8 (11.5-14.5) % Plt Count 276 (130-400) K/uL MPV 8.7 (7.4-10.4) fL Immature Gran % (Auto) 0.2 % Neut % (Auto) 81.7 % Lymph % (Auto) 7.7 % [place] % (Auto) 7.5 % Eos % (Auto) 2.8 % Baso % (Auto) 0.1 % Immature Gran # (Auto) 0.03 H (0.00-0.02) K/uL Neut # (Auto) 11.29 H (1.4-6.5) K/uL Lymph # (Auto) 1.07 L (1.2-3.4) K/uL [place] # (Auto) 1.04 H (0.11-0.59) K/uL Eos # (Auto) 0.39 (0-0.5) K/uL Baso # (Auto) 0.01 (0-0.2) K/uL Sodium (136-145) mmol/L Potassium (3.5-5.1) mmol/L Chloride (98-107) mmol/L Carbon Dioxide (21-32) mmol/L Anion Gap (3-11) BUN (7-18) mg/dl Creatinine (0.6-1.4) mg/dl Est Cr Clr Drug Dosing ml/min Est GFR ( Amer) Est GFR (Non-Af Amer) BUN/Creatinine Ratio (10-20) Glucose (70-99) mg/dl Calcium (8.5-10.1) mg/dl Total Bilirubin (0.2-1) mg/dl AST (15-37) U/L ALT (12-78) U/L Alkaline Phosphatase (45-117) U/L Total Protein (6.4-8.2) gm/dl Albumin (3.4-5.0) gm/dl Globulin (2.5-4.0) gm/dl Albumin/Globulin Ratio (0.9-2) Vancomycin Trough 17.2 (See Comment) mcg/ml PERRI Screen Pending 01/29/19 Range/Units 09:17 WBC (4.8-10.8) K/uL RBC (4.7-6.1) M/uL Hgb (14.0-18.0) g/dL Hct (42-52) % MCV (80-100) fL MCH (25-34) pg MCHC (32-36) g/dL RDW Std Deviation (36.4-46.3) fL RDW Coeff of Renetta (11.5-14.5) % Plt Count (130-400) K/uL MPV (7.4-10.4) fL Immature Gran % (Auto) % Neut % (Auto) % Lymph % (Auto) % [place] % (Auto) % Eos % (Auto) % Baso % (Auto) % Immature Gran # (Auto) (0.00-0.02) K/uL Neut # (Auto) (1.4-6.5) K/uL Lymph # (Auto) (1.2-3.4) K/uL [place] # (Auto) (0.11-0.59) K/uL Eos # (Auto) (0-0.5) K/uL Baso # (Auto) (0-0.2) K/uL Sodium 138 (136-145) mmol/L Potassium 3.8 D (3.5-5.1) mmol/L Chloride 106 (98-107) mmol/L Carbon Dioxide 27 (21-32) mmol/L Anion Gap 5.0 (3-11) BUN 6 L (7-18) mg/dl Creatinine 0.94 (0.6-1.4) mg/dl Est Cr Clr Drug Dosing 96.7 ml/min Est GFR ( Amer) 133.8 Est GFR (Non-Af Amer) 115.4 BUN/Creatinine Ratio 5.9 L (10-20) Glucose 92 (70-99) mg/dl Calcium 8.6 (8.5-10.1) mg/dl Total Bilirubin 0.4 (0.2-1) mg/dl AST 11 L (15-37) U/L ALT 18 (12-78) U/L Alkaline Phosphatase 82 (45-117) U/L Total Protein 6.7 D (6.4-8.2) gm/dl Albumin 2.8 L (3.4-5.0) gm/dl Globulin 3.9 (2.5-4.0) gm/dl Albumin/Globulin Ratio 0.7 L (0.9-2) Vancomycin Trough (See Comment) mcg/ml PERRI Screen PG Care Time/CCT Total # of Minutes Spent Total Time Spent with Patient: Total time spent is greater than 50% in coordination of care (as documented) at patient's floor/unit and/or counseling patient:
--- NOTE | 2019-01-29 15:56 | Pulmonology Progress Note ---
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 Also with skin lesions. Cutaneous TB? Derm eval thursday. Reiterated to RT and nursing that we must obtain 3 induced sputum samples. This not has been done as of yet for unclear reasons. HIV negative. TB gold pending. Malignancy still a possibility. Atypical infections such as nocardia, actino still possible as well. If sputa unrevealing, will bronch. Subjective Patient denies complaint. No cough. No fever. Notes 5 kg wt loss in 4 months. Occasional chest pain. Laying in bed. No nausea. Physical Exam Constitutional: WD/WN, vitals as above Eyes: PERRL, conjunctivae normal, anicteric sclerae ENMT: external ear and nose normal, oropharynx normal Neck: normal visual inspection Respiratory: normal respiratory effort, lungs clear to auscultation Cardiovascular: RRR, no murmur, no edema Gastrointestinal (Abdomen): normal bowel sounds, soft, nontender, no hepatosplenomegaly Musculoskeletal: no cyanosis or clubbing, extremities motor strength 5/5 Skin: normal turgor Neurologic: CN's II-XI intact bilaterally Lymphatic: no cervical or axillary lymphadenopathy Results & Data Vital Signs (Past 12 Hours) Vital Signs Temp Pulse Resp BP Pulse Ox 01/29/19 15:28 82 20 94 01/29/19 15:01 98.1 F 89 18 104/67 98 01/29/19 07:14 98.1 F 92 H 20 101/63 98 Labs and imaging personally reviewed. PG Care Time/CCT Total # of Minutes Spent Total Time Spent with Patient: Total time spent is greater than 50% in coordination of care (as documented) at patient's floor/unit and/or counseling patient:
--- NOTE | 2019-01-30 07:36 | Infectious Disease Progress Nt ---
Date of Service January 30, 2019 Assessment & Plan (1) Cavitary pneumonia: Highly concerning for TB. will check IGRA, pending, HIV negative. Will order AFB sputum x 3 - not collected. to date. NPO for bronch, unsure if scheduled. Will hold abx until sputum cultures, AFB cultures obtained. If unable to produce sputum, will need bronch Subjective afebrile, tolerating abx, sputum culture pending, no AFB culture obtained. blood culture negative. Results & Data Vital Signs (Past 12 Hours) Vital Signs Temp Pulse Resp BP Pulse Ox 01/30/19 06:55 37.0 C 86 20 102/66 98 01/29/19 23:50 36.9 C 69 18 99/64 L 96 01/29/19 20:51 91 H 16 97 Laboratory Results Microbiology 01/29/19 15:35 Sputum, Expectorated Gram Stain - Final 01/27/19 17:01 Blood Aerobic Blood Culture - Preliminary No growth in Aerobic bottle after 48 hours. 01/27/19 17:01 Blood Anaerobic Blood Culture - Preliminary No growth in Anaerobic bottle after 48 hours. 01/27/19 16:44 Blood Aerobic Blood Culture - Preliminary No growth in Aerobic bottle after 48 hours. 01/27/19 16:44 Blood Anaerobic Blood Culture - Preliminary No growth in Anaerobic bottle after 48 hours. PG Care Time/CCT Total # of Minutes Spent Total Time Spent with Patient: Total time spent is greater than 50% in coordination of care (as documented) at patient's floor/unit and/or counseling patient:
[2019-01-30] MEDS: SODIUM CHLOR 7% 4 ML NEB INH SCH ×2 (07:40→19:49)
[2019-01-30] MEDS: PIPERACILLIN/TAZOBACTAM 3.375 GM in DEXTROSE 5% 100 ML IV SCH ×3 (08:02→23:45)
[2019-01-30] MEDS ORDERED: VANCOMYCIN TROUGH ONE (09:30)
--- NOTE | 2019-01-30 15:17 | Hospitalist Progress Note ---
Date of Service January 30, 2019 Assessment & Plan (1) Cavitary pneumonia: Pt is a 23-year-old male with a history of eczema who presents with 4 months of chest pain with inspiration and cough. Patient is a citizen of [place], no known sick contacts, but CT of the chest with left upper lobe consolidation and cavitary lesions. Concern for pulmonary TB vs other anaerobic infection, Nocardia, Actinomyces, Vasculitis, Malignancy in differential Has a h/o BCG vaccine in childhood and exposure to a Grandfather with active TB 10 years ago Here with night sweats, weight loss, leukocytosis, no known fevers Also with splenomegaly and skin rash on back, unclear if related HIV neg AFB sputum pending x 2 SPutum cx light normal samira UA negative for protein or blood -collect sputum for AFB smear x 3-one more to collect -Quantiferon Gold pending -Pulm consult appreciated-no bronch unless AFB sputum negative -f/u PERRI, C-ANCA -continue Zosyn to cover for anaerobic organisms; MRSA swab neg so have since discontinued Vanco -Appreciate ID consultation -follow BCxs-NGTD -follow CBC periodically Continue supportive treatment, Tylenol for fever -Health Dept contacted by ID -airborne precautions (2) Rash: 2 maculopapular patches on back x 3 months with pruritis---> he has now excoriated off the papular portions and has some oozing of blood from lesions Appear rounded and atypical for eczema -discussed with DERM, Dr. Hernández-he will see the patient on Thursday-will place consult Sun evening -no signs of cellulitis -could be fungal, Nocardia, inflammatory? -defer to DERM to see if needs biopsy -will cover with Optifoam due to open wounds and to prevent further excoriation (3) Leukocytosis: WBC count 16 on admission and now down to 13k, improving but stable -follow CBC periodically Likely related to illness (4) Concern about pulmonary TB without diagnosis: as above -checking TB Gold, AFB (5) Splenomegaly: Noted on CT Chest Can palpate tip of spleen on exam today Likely related to ongoing likely infectious process but could be related to lymphoma, TB, autoimmune disorder, viral infection -follow clinically, consider US of spleen (6) DVT prophylaxis: DVT prophylaxisSCDs, ambulation Dispo-remain hospitalized until TB ruled out Subjective Feeling tired, but reports he stayed up till 3 AM last night and got up at 8 AM. Is eating a little more but is having to force himself to eat as his appetite is low. Was only able to produce sputum with saline nebs-sputum was yellow the first time and orange-brown the second time. No blood in stool, is making urine. No diarrhea Review of Systems Review of Systems: All systems reviewed & are unremarkable except as noted in HPI & below Physical Exam Constitutional: + thin; no acute distress Eyes: + anicteric sclerae Neck: trachea midline, no thyromegaly Respiratory: normal respiratory effort; no labored breathing, no cough and not tachypneic Auscultation: + diminished lung sounds (left upper lung field); no crackles, no rhonchi and no wheezes Cardiovascular: RRR, no murmur, no edema Gastrointestinal (Abdomen): Inspection/Auscultation: abdomen normal to inspection and normal bowel sounds; abdomen not distended Percussion/Palpation: abdomen soft and + splenomegaly (palpable tip of spleen palpated, nontender); abdomen nontender, no guarding and no hernia Musculoskeletal: Extremities: extremities normal to inspection; no cyanosis and no clubbing Skin: + rash (2 macular patches on mid back approx 2-3cm in diameter,now excoriated) Neurologic: moves all extremities and awake; no focal motor deficits Psychiatric: Orientation: alert, oriented to person and cooperative Affect: + depressed affect Results & Data Vital Signs (Past 12 Hours) Vital Signs Temp Pulse Resp BP Pulse Ox 01/30/19 15:06 37.0 C 75 17 100/64 98 01/30/19 07:40 95 H 16 98 01/30/19 06:55 37.0 C 86 20 102/66 98 Laboratory Results Sputum cx- light normal samira AFB smear pending x 2 PG Care Time/CCT Total # of Minutes Spent Total Time Spent with Patient: Total time spent is greater than 50% in coordination of care (as documented) at patient's floor/unit and/or counseling patient:
[2019-01-31] MEDS: SODIUM CHLOR 7% 4 ML NEB INH SCH ×2 (07:12→20:22)
[2019-01-31] MEDS: PIPERACILLIN/TAZOBACTAM 3.375 GM in DEXTROSE 5% 100 ML IV SCH (08:26)
--- NOTE | 2019-01-31 10:39 | Infectious Disease Progress Nt ---
Date of Service January 31, 2019 Assessment & Plan (1) Cavitary pneumonia: Highly concerning for TB. IGRA, pending, HIV negative. Will order AFB sputum x 1 more, if 3 negative smears can stop isolation and d/c home. Will hold abx until sputum cultures, AFB cultures obtained. routine sputum negative, will stop zosyn. Discussed with primary service, he will need 3 negative sputum AFB smears to be removed from isolation (2 negative so far). I will start emperic anti TB meds after 3rd specimen obtained and he will remain on this pending culture results. he will follow with MARIA LUISA after d/c. MARIA LUISA is not available today due to holiday - earliest day he can be d/c would be tomorrow. Will likely start anti TB meds tomorrow and he can be d/c after first dose. I will speak with MARIA LUISA tomorrow and arrange transition of care to home. He will need home isolation for first 14 days of treatment, He will require directly observed therapy with MARIA LUISA upon d/c to home. this will be arranged prior to d/c. Subjective 2 cultures obtained to date for AFB, both smear negative, HIV negative, routine sputum negative, remains on zosyn, afebrile. per chart now patient states his grandfather had TB 10 years ago, previusly denied any known contacts. IGRA pending, wbc 13. Results & Data Vital Signs (Past 12 Hours) Vital Signs Temp Pulse Resp BP Pulse Ox 01/31/19 07:12 103 H 16 98 01/31/19 07:03 36.7 C 84 20 95/60 L 97 01/31/19 00:07 37.3 C 90 20 97/68 L 95 Laboratory Results Microbiology 01/30/19 08:00 Sputum, Expectorated Acid Fast Bacilli Smear - Final 01/29/19 15:35 Sputum, Expectorated Acid Fast Bacilli Smear - Final 01/30/19 08:00 Sputum, Expectorated Gram Stain - Final 01/29/19 15:35 Sputum, Expectorated Gram Stain - Final 01/29/19 15:35 Sputum, Expectorated Sputum Culture - Preliminary Light normal samira present, final report to follow. 01/27/19 17:01 Blood Aerobic Blood Culture - Preliminary No growth in Aerobic bottle after 48 hours. 01/27/19 17:01 Blood Anaerobic Blood Culture - Preliminary No growth in Anaerobic bottle after 48 hours. 01/27/19 16:44 Blood Aerobic Blood Culture - Preliminary No growth in Aerobic bottle after 48 hours. 01/27/19 16:44 Blood Anaerobic Blood Culture - Preliminary No growth in Anaerobic bottle after 48 hours. PG Care Time/CCT Total # of Minutes Spent Total Time Spent with Patient: Total time spent is greater than 50% in coordination of care (as documented) at patient's floor/unit and/or counseling patient:
--- NOTE | 2019-01-31 12:38 | Dermatology Consultation ---
Date of Consultation January 31, 2019 Assessment & Plan (1) Lichen simplex chronicus: Exam is c/w [facility] presentation of chronic eczema, of which patient has a longstanding history. No signs of secondary infection on exam today. Areas would not be typical of cutaneous tuberculosis (if this diagnosis is indeed eventually confirmed). Start treatment with Fluocinonide 0.05% ointment BID x 2 weeks to active areas. Given his propensity to excoriate these areas on the back, I agree with keeping them covered with Optifoam in the short term. General skin care practices for his eczema were discussed. Present on Admission?: Yes History of Present Illness Reason for Consultation: Rash on the back Requesting Physician: Ebonie Sanchez MD Attending Physician: Ry Robertson MD History of Present Illness Patient is a 23 y/o male from [facility], initially admitted on 01/27/2019 with complaints intermittent cough, chest pain and night sweats over the past 3- 4 months. His workup has identified cavitary pneumonia, highly suspicious for tuberculosis. He is being followed by the hospitalist team as well as Infectious Disease. During the course of his evaluation, it was noted that he has two, itchy areas on the mid back. I was consulted for further evaluation. Patient states that they have been present for at least 2-3 months. They are very itchy at times. He admits to scratching at them regularly. He denies any prior treatment to the areas. He reports a long-standing history of eczema since childhood. He states that it will come and go. It tends to be worse in the winter months, particularly since he has been in the [place]. 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 He reports a family history of eczema in his father and maternal grandfather as well. He states that he will typically breakout on the arms and hips. He notes some dry, itchy skin on the right hip today. Otherwise, he denies any areas of involvement. He has not had any specific topical treatment to the areas prior to or since admission. The hospitalist team did cover the areas with Optifoam yesterday as there was some slight drainage from excoriated regions. Allergies Allergy/AdvReac Type Severity Reaction Status Date / Time No Known Drug Allergies Allergy Unknown Unverified 01/27/19 17:32 shellfish derived Allergy Swelling Verified 01/28/19 06:23 of Lip/Tongue/Throat Home Medications Home Medications Medication Instructions Recorded Confirmed Type Inhaler Prn 1 dose INHALATION UNKNOWN PRN 01/27/19 01/27/19 History Patient History Medical History Shellfish allergy No significant past medical history Surgical History No history of previous surgery Family History Other Family history non-contributory Social History Preferred Language: Persian Communication Ability: Effective Xray Tech Required: No Beliefs That Will Affect Care: None Current Living Situation: Other Current Living Situation Comment: Lives in an apartment complex with roommates. Other Information That Helps Us Care for You: No Feels Safe at Home: Yes Smoking Status: Never smoker Hx Alcohol Use: No Hx Substance Use: No Review of Systems Constitutional: + sweats, + fatigue and + malaise Eyes: no worsening vision Ear, Nose, Mouth, Throat: no oral ulcers Respiratory: no dyspnea Integumentary: as per Subjective / HPI Physical Exam Constitutional: + thin; no acute distress Skin: Examined the face, eyelids, lips, neck, chest, abdomen, back, upper extremities/hands: +2 oval slightly violaceous lichenified plaques with few healing excoriations on the mid spinal back + xerosis with linear excoriations on the right lateral hip Results & Data Vital Signs (Past 12 Hours) Vital Signs Temp Pulse Resp BP Pulse Ox 01/31/19 07:12 103 H 16 98 01/31/19 07:03 36.7 C 84 20 95/60 L 97 PG Care Time/CCT Total # of Minutes Spent Total Time Spent with Patient: Total time spent is greater than 50% in coordination of care (as documented) at patient's floor/unit and/or counseling patient:
[2019-01-31 13:22] LABS: Anti Nuclear Antibody Screen NEGATIVE (NEGATIVE)
[2019-01-31 13:36] LABS: Quantiferon Mitogen-NIL 6.19 IU/ML; Quantiferon NIL 0.02 IU/ML; Quantiferon TB Gold Plus NEGATIVE (NEGATIVE); Quantiferon TB1-NIL 0.01 IU/ML
--- NOTE | 2019-01-31 15:16 | Pulmonology Progress Note ---
Date of Service January 31, 2019 Assessment & Plan (1) Cavitary pneumonia: Impression: 23-year-old male with upper lobe cavitary lesion highly concerning for tuberculosis. AFB has been collected and smears are reportedly negative x2. QuantiFERON still pending. Recommendations: 1. Cavitary lung lesion: We will follow-up with results of final AFB. If 30 if he is negative, will tentatively schedule patient for bronchoscopy with BAL of the upper lobe lesion tomorrow morning. Patient was advised. N.p.o. after midnight. Discussed with respiratory therapy who will coordinate with radiology sedation nursing. 2. Will defer antimicrobial therapy to infectious disease and the primary service. Remaining issues per primary service Subjective Patient seen and examined. Chart reviewed. He reports some occasional night sweats but states his breathing is about the same. He is not experiencing any chest pain or palpitations. He is eating. Sputum's are collected and are pending. 2 out of 3 have shown negative smears to date. Review of Systems Review of Systems: Unchanged from prior Physical Exam Constitutional: + thin; no acute distress Eyes: + anicteric sclerae ENMT: external ear and nose normal, oropharynx normal Neck: trachea midline, no thyromegaly Respiratory: normal respiratory effort; no labored breathing, no cough and not tachypneic Auscultation: + diminished lung sounds (left upper lung field); no crackles, no rhonchi and no wheezes Cardiovascular: RRR, no murmur, no edema Gastrointestinal (Abdomen): normal bowel sounds, soft, nontender, no hepatosplenomegaly Musculoskeletal: Extremities: extremities normal to inspection; no cyanosis and no clubbing Skin: + rash (2 macular patches on mid back approx 2-3cm in diameter,now excoriated) Neurologic: moves all extremities and awake; no focal motor deficits Psychiatric: Orientation: alert, oriented to person and cooperative Affect: + depressed affect Lymphatic: no cervical or axillary lymphadenopathy no preauricular lymphadenopathy Results & Data Vital Signs (Past 12 Hours) Vital Signs Temp Pulse Resp BP Pulse Ox 01/31/19 07:12 103 H 16 98 01/31/19 07:03 36.7 C 84 20 95/60 L 97 Laboratory Results Microbiology 01/31/19 07:25 Sputum, Expectorated Gram Stain - Final 01/29/19 15:35 Sputum, Expectorated Gram Stain - Final 01/29/19 15:35 Sputum, Expectorated Sputum Culture - Final Light normal samira. 01/30/19 08:00 Sputum, Expectorated Gram Stain - Final 01/30/19 08:00 Sputum, Expectorated Sputum Culture - Preliminary Light normal samira present, final report to follow. 01/30/19 08:00 Sputum, Expectorated Acid Fast Bacilli Smear - Final 01/29/19 15:35 Sputum, Expectorated Acid Fast Bacilli Smear - Final 01/27/19 17:01 Blood Aerobic Blood Culture - Preliminary No growth in Aerobic bottle after 48 hours. 01/27/19 17:01 Blood Anaerobic Blood Culture - Preliminary No growth in Anaerobic bottle after 48 hours. 01/27/19 16:44 Blood Aerobic Blood Culture - Preliminary No growth in Aerobic bottle after 48 hours. 01/27/19 16:44 Blood Anaerobic Blood Culture - Preliminary No growth in Anaerobic bottle after 48 hours. PG Care Time/CCT Total # of Minutes Spent Total Time Spent with Patient: Total time spent is greater than 50% in coordination of care (as documented) at patient's floor/unit and/or counseling patient:
--- NOTE | 2019-01-31 16:03 | Hospitalist Progress Note ---
Date of Service January 31, 2019 Assessment & Plan (1) Cavitary pneumonia: Concern for pulmonary TB vs other anaerobic infection, Nocardia, Actinomyces, Vasculitis, Malignancy in differential. HIV negative. - AFB sputum x 2 is negative; third pending. - Sputum cx light normal samira. - Quantiferon Gold pending - Pulm consult appreciated - Possibly bronch tomorrow - F/u PERRI, C-ANCA - Continue Zosyn to cover for anaerobic organisms; MRSA swab neg so have since discontinued vanc. - Health Dept to be contacted by ID - Airborne precautions - Discussed with ID & pulm - Possibly start TB meds tomorrow. (2) Rash: 2 maculopapular patches on back x 3 months with pruritis. - Seen by dermatology on 01/31: - Chronic lichen simplex - Started fluocinonide by dermatology (3) Leukocytosis: WBC count 16 on admission and now down to 13k, improving but stable. (4) Splenomegaly: Noted on CT chest on admission. Likely related to ongoing likely infectious process but could be related to lymphoma, TB, autoimmune disorder, viral infection - Follow clinically (5) DVT prophylaxis: SCDs, ambulation Subjective Feeling stable today. Still having night sweats. Physical Exam Constitutional: + thin; no acute distress, not in distress and not lethargic Eyes: EOM intact bilaterally; no conjunctival abnormality ENMT: external ear and nose normal, oropharynx normal Neck: trachea midline, no thyromegaly normal visual inspection Respiratory: normal respiratory effort, lungs clear to auscultation no respiratory distress Cardiovascular: RRR, no murmur, no edema Gastrointestinal (Abdomen): Inspection/Auscultation: abdomen normal to inspection; abdomen not distended Musculoskeletal: no cyanosis or clubbing, extremities motor strength 5/5 Skin: no rashes, warm and dry Neurologic: moves all extremities and awake Psychiatric: Orientation: alert, oriented to person and cooperative Results & Data Vital Signs (Past 12 Hours) Vital Signs Temp Pulse Resp BP Pulse Ox 01/31/19 15:47 36.8 C 104 H 18 99/62 L 98 01/31/19 07:12 103 H 16 98 01/31/19 07:03 36.7 C 84 20 95/60 L 97 PG Care Time/CCT Total # of Minutes Spent Total Time Spent with Patient: Total time spent is greater than 50% in coordination of care (as documented) at patient's floor/unit and/or counseling patient:
[2019-01-31] MEDS: FLUOCINONIDE 0.05% OINT 15 GM TUBE EXT SCH (21:02)
[2019-02-01] MEDS ORDERED: OXYMETAZOLINE 0.05% 30 ML BTL NAE SCH (06:00)
[2019-02-01] MEDS ORDERED: SODIUM CHLORIDE 0.9% 1000ML 1,000 ML IV SCH (06:00)
[2019-02-01 07:35] LABS: Creatinine Clr Calc Pharmacy 82.6 ml/min; Est GFR (African American) 110.6; Est GFR (Non-African American) 95.5
[2019-02-01] MEDS: SODIUM CHLOR 7% 4 ML NEB INH SCH (08:08)
--- NOTE | 2019-02-01 08:55 | History & Physical Bridge Note ---
Date of Service February 01, 2019 History & Physical Bridge Note I have examined the patient, reviewed the History & Physical and in the interval since the performance of the History & Physical I have noted the following changes of clinical significance: no changes noted
--- NOTE | 2019-02-01 08:56 | Pre Anesthesia Assessment ---
Date of Service February 01, 2019 Pre Sedation Assessment Vital Signs Temp Pulse Pulse Resp BP Pulse Ox 02/01/19 08:45 84 18 115/70 100 02/01/19 07:07 36.7 C 83 18 96/64 L 94 01/31/19 23:22 37 C 105 H 18 99/64 L 98 01/31/19 15:47 36.8 C 104 H 18 99/62 L 98 Pre-Sedation Airway Assessment Smoking Status: Never smoker Hx Sleep Apnea: No Short, Thick Neck: No Thyromental Distance: > or= 3.5 Finger Breadths Oral Cavity: + WNL Mallampati Class: II ASA: ASA2 NPO Status Date of Last Intake of Fluids: 02/01/19 Time of Last Intake of Fluids: 00:00 Last Oral Intake of Fluids Comment: atleast since midnight Date of Last Intake of Solid Food: 02/01/19 Time of Last Intake of Solid Foods: 00:00 Last Intake of Solids Comment: atleast since midnight Notes The planned sedation has been discussed with the patient. Informed Consent was obtained. I have identified the patient, determined the appropriateness of sedation and have assessed the patient immediately prior to the procedure. All medicine(s) and interventions are by my order.
--- NOTE | 2019-02-01 09:18 | Pulmonology Progress Note ---
Date of Service February 01, 2019 Assessment & Plan (1) Cavitary pneumonia: Impression: 23-year-old male with upper lobe cavitary lesion highly concerning for tuberculosis. AFB has been collected and smears are negative x2. QuantiFERON negative Recommendations: 1. Cavitary lung lesion: Proceed with fiberoptic bronchoscopy with bronchoalveolar lavage of left upper lobe. Will collect post [facility] sputum for AFB as well. Specimen will also be sent for Gram stain and culture as well as c ell count differential. 2. Will defer antimicrobial therapy to infectious disease and the primary service. Remaining issues per primary service Subjective No issues overnight. Continues to complain of occasional night sweats. Not coughing up or expectorating significant phlegm. N.p.o. for bronchoscopy this morning Review of Systems Review of Systems: Unchanged from prior Physical Exam Constitutional: + thin; no acute distress Eyes: + anicteric sclerae ENMT: Mallampati Class: II Neck: trachea midline, no thyromegaly Respiratory: normal respiratory effort; no labored breathing, no cough and not tachypneic Auscultation: + diminished lung sounds (left upper lung field); no crackles, no rhonchi and no wheezes Cardiovascular: RRR, no murmur, no edema Gastrointestinal (Abdomen): normal bowel sounds, soft, nontender, no hepatosplenomegaly Musculoskeletal: Extremities: extremities normal to inspection; no cyanosis and no clubbing Skin: + rash (2 macular patches on mid back approx 2-3cm in diameter,now excoriated) Neurologic: moves all extremities and awake; no focal motor deficits Psychiatric: Orientation: alert, oriented to person and cooperative Affect: + depressed affect Lymphatic: no cervical or axillary lymphadenopathy no preauricular lymphadenopathy Results & Data Vital Signs (Past 12 Hours) Vital Signs Temp Pulse Pulse Resp BP Pulse Ox 02/01/19 09:15 101 H 16 111/75 92 02/01/19 09:10 98 H 14 111/75 97 02/01/19 09:05 82 18 110/70 97 02/01/19 09:00 90 14 126/81 100 02/01/19 08:55 88 18 132/82 100 02/01/19 08:45 84 18 115/70 100 02/01/19 07:07 36.7 C 83 18 96/64 L 94 01/31/19 23:22 37 C 105 H 18 99/64 L 98 PG Care Time/CCT Total # of Minutes Spent Total Time Spent with Patient: Total time spent is greater than 50% in coordination of care (as documented) at patient's floor/unit and/or counseling patient:
[2019-02-01] MEDS ORDERED: LIDOCAINE HCL VISCOUS SOLN 2% 15 ML UDC TOP ONE (09:19)
[2019-02-01] MEDS ORDERED: fentaNYL citrate 100 MCG/2 ML VIAL IV ONE (09:19)
[2019-02-01] MEDS ORDERED: LIDOCAINE HCL 2% (LOCAL) INJ 50 ML VIAL INSTIL ONE (09:19)
[2019-02-01] MEDS ORDERED: MIDAZOLAM HCL 1 MG/ML 2ML VIAL IV STA (09:19)
[2019-02-01] MEDS ORDERED: OXYMETAZOLINE 0.05% 30 ML BTL ONE (09:19)
--- NOTE | 2019-02-01 09:21 | Procedure Note ---
Procedure Note Date of Service February 01, 2019 Procedure: Fiberoptic bronchoscopy Bronchoalveolar lavage, left upper lobe Conscious sedation Provider: Rolan Khoury MD Consent: Signed by patient and timeout verified prior to procedure. Sedation start: 856 Sedation end: 915 Conscious sedation: 100 mcg fentanyl, 4 mg Versed, topical lidocaine per RT protocol Procedure: Patient was brought to the bronchoscopy suite. Consent was verified. Appropriate radiographic studies had been reviewed prior to the procedure. Standard monitoring was applied. Oxygen was administered. After topical anesthesia of the airways per respiratory therapy protocol, the fiberoptic scope was advanced through the right nares. Oropharynx was u nremarkable. Vocal cords were visualized and were normal in appearance and function. Topical anesthesia of the cords was achieved with instillation of lidocaine through the scope. Scope was then passed through the vocal cords. The trachea was midline and normal. Main sourav was sharp. Anesthesia of the lower airways was achieved with instillation of lidocaine through the scope. A sequential and systematic examination of the lower airways was conducted. The right-sided airways were widely patent and the mucosa appeared normal. Left- sided airways were widely patent and the mucosa appeared normal. After the inspection bronchoscopy was completed, the scope was wedged into the left upper lobe. BAL was performed with instillation of 3 aliquots of 60 mL saline. Return was slightly suboptimal due to significant airway collapse however adequate specimen was collected. The BAL was then terminated and trap was instilled and remaining secretions were collected through the trap. The bronchoscope was then removed from the airways. The patient tolerated the procedure well without obvious complication. Patient was returned to the recovery room. Impression: 1. Normal inspection bronchoscopy. 2. Successful BAL left upper lobe. Await microbiologic and cytologic analysis. Coding CPT Codes Sedation/Anesthesia - Sedation/Anesthesia: Mod Sedation by the same physician;Init15 Min Child Age 5 & Up ([id number]) Sedation/Anesthesia - Sedation/Anesthesia: Mod Sedation by the same physician; Ea [id number] Minutes ([id number]) Pulmonary/Thoracic - Pulmonary and Thoracic: Dx bronchoscopy/BAL ([id number])
[2019-02-01] MEDS ORDERED: LIDOCAINE HCL 2% (LOCAL) INJ 50 ML VIAL INSTIL SCH (09:30)
[2019-02-01] MEDS ORDERED: LIDOCAINE 4% INH SOLN 4 ML BTL NAE ONE (09:31)
[2019-02-01] MEDS: ISONIAZID 300 MG TAB PO SCH (10:07)
[2019-02-01] MEDS: rifAMPin 300 MG CAPSULE PO SCH (10:07)
[2019-02-01] MEDS: PYRAZINAMIDE 500 MG TABLET PO SCH (10:07)
[2019-02-01] MEDS: PYRIDOXINE HCL 50 MG TAB PO SCH (10:07)
[2019-02-01] MEDS: ETHAMBUTOL HCL 400 MG TAB PO SCH (10:07)
[2019-02-01] MEDS: FLUOCINONIDE 0.05% OINT 15 GM TUBE EXT SCH ×2 (10:08→20:34)
--- NOTE | 2019-02-01 11:38 | Post Anesthesia Assessment ---
Date of Service February 01, 2019 09:20 Post Sedation Assessment Vital Signs Temp Pulse Pulse Resp BP Pulse Ox 02/01/19 10:43 82 18 110/72 97 02/01/19 10:13 80 18 118/76 95 02/01/19 09:51 92 H 22 121/85 97 02/01/19 09:30 100 H 16 99/77 L 93 02/01/19 09:25 104 H 16 111/80 92 02/01/19 09:20 105 H 16 106/77 92 02/01/19 09:15 101 H 16 111/75 92 02/01/19 09:10 98 H 14 111/75 97 02/01/19 09:05 82 18 110/70 97 02/01/19 09:00 90 14 126/81 100 02/01/19 08:55 88 18 132/82 100 02/01/19 08:45 84 18 115/70 100 02/01/19 07:07 36.7 C 83 18 96/64 L 94 01/31/19 23:22 37 C 105 H 18 99/64 L 98 01/31/19 15:47 36.8 C 104 H 18 99/62 L 98 Recovery Score Activity: Moves 4 extremities Respiration: Deep Breath/Cough Circulation: +/-20% PreAnes Value Consciousness: Arouseable (by name) Oxygen Saturation: O2 needed for >90% Post Anesthesia Score: 8 Discharge Sedation Level of Care: Fast Track Phase II Post Sedation Plan On clinical assessment, the patient appears to have tolerated the sedation without complications. Patient is recovering as anticipated. Patient will continue to be monitored by nursing and may be discharged when sedation discharge criteria are met per below protocol. Upon Completions of procedure and additional 15 minutes continue every 5 minute vital signs and the P.A.R. score; then discharge to a Phase I or Fast Track to Phase II per the following guidelines: * Discharge Patient to appropriate Phase II area if PAR is 8 or greater or return to pre- procedure baseline. The post - procedure orders will be as directed. * If PAR score is less than 8 or not return to pre-procedure baseline then patient will follow Phase I monitoring till PAR is reached for Phase II. The Phase I may be done in procedure room or may call to secure a Phase I area. * If naloxone or flumazenil are used for reversal, hold in Phase I for continued monitoring from when last reversal dose was given for a minimum of 60 minutes or longer pending the nurse and/or physician discretion of patient condition before discharge to Phase II. Please call the Sedation Physician to re-evaluate and complete post-note for discharge to Phase II area. Do NOT discharge from procedure sedation or Phase 1 until post- sedation evaluation note is complete by procedure /sedation MD Sedation Discharge Instructions to be given to the patient at discharge to home.
[2019-02-01 12:41] LABS: Basophil Body Fluid Man 1 %; Eosinophil Body Fluid Man 11 %; Fluid Mono/Macrophage 21 %; Lymphocyte Body Fluid Man 3 %; Neutrophil Body Fluid Man 64 %
--- NOTE | 2019-02-01 14:17 | Infectious Disease Progress Nt ---
Date of Service February 01, 2019 Assessment & Plan (1) Cavitary pneumonia: Highly concerning for TB. IGRA, pending, HIV negative. AFB smear negative x 3 sputum specimens, had bronch this am, await findings, would maintain airborne isolation now that additional smear pending. routine sputum negative, began anti tb meds today. Spoke with MARIA LUISA, will arrange to transition to home DOT upon d/c. will need to maintain home isolation x first 14 days of therapy. If he is to be d/c tomorrow, please ensure that he receives anti tb abx prior to d/c. await bronch cutlures. follow afb cultures. Subjective negative AFB sputum smear x 3. had bronch this am, findings pending. started on emperic anti tb meds today. afebrile. other abx stopped. Results & Data Vital Signs (Past 12 Hours) Vital Signs Temp Pulse Pulse Resp BP Pulse Ox 02/01/19 12:46 63 20 115/75 96 02/01/19 10:43 82 18 110/72 97 02/01/19 10:13 80 18 118/76 95 02/01/19 09:51 92 H 22 121/85 97 02/01/19 09:30 100 H 16 99/77 L 93 02/01/19 09:25 104 H 16 111/80 92 02/01/19 09:20 105 H 16 106/77 92 02/01/19 09:15 101 H 16 111/75 92 02/01/19 09:10 98 H 14 111/75 97 02/01/19 09:05 82 18 110/70 97 02/01/19 09:00 90 14 126/81 100 02/01/19 08:55 88 18 132/82 100 02/01/19 08:45 84 18 115/70 100 02/01/19 07:07 36.7 C 83 18 96/64 L 94 Laboratory Results Microbiology 02/01/19 09:05 Bronch Wash,Left Upper Lobe Gram Stain - Final 01/31/19 07:25 Sputum, Expectorated Gram Stain - Final 01/31/19 07:25 Sputum, Expectorated Sputum Culture - Preliminary Moderate normal samira present, final report to follow. 01/30/19 08:00 Sputum, Expectorated Gram Stain - Final 01/30/19 08:00 Sputum, Expectorated Sputum Culture - Final Moderate normal samira. 01/31/19 07:25 Sputum, Expectorated Acid Fast Bacilli Smear - Final 01/29/19 15:35 Sputum, Expectorated Gram Stain - Final 01/29/19 15:35 Sputum, Expectorated Sputum Culture - Final Light normal samira. 01/30/19 08:00 Sputum, Expectorated Acid Fast Bacilli Smear - Final 01/29/19 15:35 Sputum, Expectorated Acid Fast Bacilli Smear - Final 01/27/19 17:01 Blood Aerobic Blood Culture - Preliminary No growth in Aerobic bottle after 48 hours. 01/27/19 17:01 Blood Anaerobic Blood Culture - Preliminary No growth in Anaerobic bottle after 48 hours. 01/27/19 16:44 Blood Aerobic Blood Culture - Preliminary No growth in Aerobic bottle after 48 hours. 01/27/19 16:44 Blood Anaerobic Blood Culture - Preliminary No growth in Anaerobic bottle after 48 hours. PG Care Time/CCT Total # of Minutes Spent Total Time Spent with Patient: Total time spent is greater than 50% in coordination of care (as documented) at patient's floor/unit and/or counseling patient:
--- NOTE | 2019-02-01 17:19 | Hospitalist Progress Note ---
Date of Service February 01, 2019 Assessment & Plan (1) Cavitary pneumonia: Concern for pulmonary TB vs other anaerobic infection, Nocardia, Actinomyces, Vasculitis, Malignancy in differential. HIV negative. - AFB sputum x 3 is negative; AFB from bronch pending. - Quantiferon Gold was negative. - F/u C-ANCA; PERRI negative. - Continue Zosyn to cover for anaerobic organisms; MRSA swab neg so have since discontinued vanc. - Health Dept to be contacted by ID - Airborne precautions - Discussed with ID & pulm - Bronch on 02/01 with AFB and cultures pending. Began TB treatment today. (2) Rash: 2 maculopapular patches on back x 3 months with pruritis. - Seen by dermatology on 01/31: - Chronic lichen simplex - Started fluocinonide by dermatology (3) Leukocytosis: WBC count 16 on admission and now down to 13k, stable. (4) Splenomegaly: Noted on CT chest on admission. Likely related to ongoing likely infectious process but could be related to lymphoma, TB, autoimmune disorder, viral infection. - Follow clinically (5) DVT prophylaxis: SCDs, ambulation Subjective Notes dizziness and sore throat after his bronch. Physical Exam Constitutional: + thin; no acute distress, not in distress and not lethargic Eyes: EOM intact bilaterally; no conjunctival abnormality ENMT: external ear and nose normal, oropharynx normal Neck: trachea midline, no thyromegaly normal visual inspection Respiratory: normal respiratory effort, lungs clear to auscultation no res piratory distress Cardiovascular: RRR, no murmur, no edema Gastrointestinal (Abdomen): Inspection/Auscultation: abdomen normal to inspection; abdomen not distended Musculoskeletal: no cyanosis or clubbing, extremities motor strength 5/5 Skin: no rashes, warm and dry Neurologic: moves all extremities and awake Psychiatric: Orientation: alert, oriented to person and cooperative Results & Data Vital Signs (Past 12 Hours) Vital Signs Temp Pulse Pulse Resp BP Pulse Ox 02/01/19 15:36 36.5 C 76 18 101/65 96 02/01/19 12:46 63 20 115/75 96 02/01/19 10:43 82 18 110/72 97 02/01/19 10:13 80 18 118/76 95 02/01/19 09:51 92 H 22 121/85 97 02/01/19 09:30 100 H 16 99/77 L 93 02/01/19 09:25 104 H 16 111/80 92 02/01/19 09:20 105 H 16 106/77 92 02/01/19 09:15 101 H 16 111/75 92 02/01/19 09:10 98 H 14 111/75 97 02/01/19 09:05 82 18 110/70 97 02/01/19 09:00 90 14 126/81 100 02/01/19 08:55 88 18 132/82 100 02/01/19 08:45 84 18 115/70 100 02/01/19 07:07 36.7 C 83 18 96/64 L 94 PG Care Time/CCT Total # of Minutes Spent Total Time Spent with Patient: Total time spent is greater than 50% in coordination of care (as documented) at patient's floor/unit and/or counseling patient:
[2019-02-02 07:25] LABS: Hematocrit (blood only) 42.9 % (42-52); Hemoglobin 14.5 g/dL (14.0-18.0); Mean Corpuscular Hemoglobin 28.5 pg (25-34); Mean Corpuscular Hgb Conc 33.8 g/dL (32-36); Mean Corpuscular Volume 84.3 fL (80-100); Mean Platelet Volume 9.1 fL (7.4-10.4); Platelet Count 366 K/uL (130-400); RDW Coefficient of Variation 13.1 % (11.5-14.5); RDW Standard Deviation 39.3 fL (36.4-46.3); Red Blood Count 5.09 M/uL (4.7-6.1); White Blood Count 14.35 K/uL (4.8-10.8)
[2019-02-02] MEDS: PYRIDOXINE HCL 50 MG TAB PO SCH (07:32)
[2019-02-02] MEDS: PYRAZINAMIDE 500 MG TABLET PO SCH (07:32)
[2019-02-02] MEDS: rifAMPin 300 MG CAPSULE PO SCH (07:32)
[2019-02-02] MEDS: ETHAMBUTOL HCL 400 MG TAB PO SCH (07:32)
[2019-02-02] MEDS: ISONIAZID 300 MG TAB PO SCH (07:33)
[2019-02-02] MEDS: FLUOCINONIDE 0.05% OINT 15 GM TUBE EXT SCH (07:33)
[2019-02-02 08:03] LABS: BUN Creatinine Ratio 14.9 (10-20); Calcium 9.6 mg/dl (8.5-10.1); Creatinine Clr Calc Pharmacy 93.7 ml/min; Est GFR (African American) 128.8; Est GFR (Non-African American) 111.1; Potassium 3.8 mmol/L (3.5-5.1)
--- NOTE | 2019-02-02 10:33 | XRay Report ---
XR chest 1V portable CLINICAL HISTORY: SOB, cavitary lesion COMPARISON STUDY: CT scan dated 01/27/2019 FINDINGS: There is dense consolidation left midlung zone with areas of cavitation. The right lung is clear. There are no significant pleural effusions.[ IMPRESSION: Dense left midlung zone consolidation with areas of cavitation. Electronically signed by: Rafita Colon M.D. 02/02/2019 10:31 AM
--- NOTE | 2019-02-02 10:36 | Pulmonology Progress Note ---
Date of Service February 02, 2019 Assessment & Plan (1) Cavitary pneumonia: 23-year-old [place] male with presentation of left lung cavitating lesions. * A.m. sputum negative for AFB x3 * QuantiFERON gold negative * Bronchoscopy completed with negative AFB smear (cultures are pending) * Patient started on RIPE therapy 02/02/2019 -see medication dose as below * Further management per Dr. Sharif with infectious disease * Patient continued on droplet precautions per ID * Oxygenation has been adequate * Encourage ambulation (2) Shortness of breath: Patient complains of shortness of breath this morning * Oxygenation has been adequate on room air * Physical examination shows no adventitious breath sounds with auscultation * Repeat chest x-ray shows left-sided infiltrate * No evidence of pleural effusion, pneumothorax, pulmonary edema * Would encourage ambulation as tolerated * Continue treatment for underlying pneumonia as listed above (3) GERD without esophagitis: Patient complained of mid epigastric pain this morning after taking medications No postprandial pain No history of GERD but patient has been recumbent for the past several days * We will start patient on ranitidine 150 mg p.o. twice daily No indication for PPI at this time No hematemesis, hematochezia, bright red blood per rectum. Follow expectantly (4) DVT prophylaxis: No hemoptysis or other signs of acute bleeding Would encourage ambulation in the hallways as tolerated Begin to increase exertional tolerance We will defer chemical prophylaxis to the primary team Thank you very much for including us in the care of this patient. At this time we will sign off. Please feel free to reconsult as needed. Please refer to Dr. Khoury's addendum for further recommendations. Supervising Physician Co-Signing Physician Notes Patient was discharged before I could see him today. Case was discussed with EVELIN urias Subjective Attending: Dr. Khoury Is a 23-year-old [place] male that was admitted for multiple cavitary lesions suggestive of tuberculosis. A.m. AFP's sputum samples have been negative x3. QuantiFERON gold is negative. Bronchoscopy was completed yesterday and AFB smear is negative as well. Patient states that he feels more short of breath this morning. He has no chest pain or tightness. No flank pain. He does continue with night sweats. He has no daytime sweating. He is negative for fever or chills. He denies hemoptysis. He has no significant expectorated sputum. Patient does complain of some gastroesophageal symptoms this morning after taking his medications in the mid epigastric region. He denies history of GERD. He denies history of peptic ulcer disease. Patient has been restricted to his room secondary to droplet precautions and is not been ambulating the hallways. Encouraged ambulation with a mask. Patient has no other acute complaints. Review of Systems Review of Systems: All systems reviewed & are unremarkable except as noted in HPI & below Physical Exam Physical Exam: GENERAL : No acute distress EYES: No icterus, gaze conjugate NOSE: No evidence of epistaxis MOUTH: No lesions or candidiasis NECK: Supple LUNGS: CTA B/L, no wheezes, rales or rhonchi. No adventitious breath sounds. Breath sounds equal bilaterally to the bases. HEART: Regular, rate controlled ABDOMEN: Soft, NT, ND, BS Present EXTREMITIES: No LE edema, pedal pulses intact NEURO: A&OX3 Results & Data Vital Signs (Past 12 Hours) Vital Signs Temp Pulse Resp BP BP Pulse Ox 02/02/19 07:14 36.7 C 82 16 108/73 95 02/01/19 22:36 36.9 C 90 18 106/72 95 Laboratory Results 02/02/19 06:57 02/02/19 06:57 Spec: [id number] Collected: 02/01/19 Received: 02/01/[address]: Rolan Khoury MD Copy To: Olivia Blue MD Source: Sputum, Expectorated OV Order: Ordered: AFB Cult/Smr Comments: Comment post bronch sputum Procedure Result Verified Site AFB Smear Final 02/02/19 AFB Smear Results No Acid-Fast Bacilli Seen AFB Culture PENDING Diagnostic Findings XR chest 1V portable CLINICAL HISTORY: SOB, cavitary lesion COMPARISON STUDY: CT scan dated 01/27/2019 FINDINGS: There is dense consolidation left midlung zone with areas of cavitation. The right lung is clear. There are no significant pleural effusions.[ IMPRESSION: Dense left midlung zone consolidation with areas of cavitation. Electronically signed by: Rafita Colon M.D. 02/02/2019 10:31 AM Medications Administered Active Medications Ethambutol HCl (Myambutol) [facility] [place] Stop: 03/03/19 08:59 Last Admin: 02/02/19 07:32 Dose: 800 mg Isoniazid (Isoniazid) 300 mg PO [facility] Stop: 03/03/19 08:59 Last Admin: 02/02/19 07:33 Dose: 300 mg Pyrazinamide (Pyrazinamide) 1,000 mg PO [facility] Stop: 03/03/19 08:59 Last Admin: 02/02/19 07:32 Dose: 1,000 mg Rifampin (Rifampin) 600 mg PO [facility] Stop: 02/08/19 08:59 Last Admin: 02/02/19 07:32 Dose: 600 mg PG Care Time/CCT Total # of Minutes Spent Total Time Spent with Patient: Total time spent is greater than 50% in coordination of care (as documented) at patient's floor/unit and/or counseling patient:30
--- NOTE | 2019-02-02 16:44 | Discharge Summary ---
Date of Service February 02, 2019 Admission HPI Per Admitting Provider 23-year-old with prior exposure to TB who presents with chest pain, worse with coughing. He states that the symptoms have been ongoing over the past 4 months. During this duration, he is also had significant weight loss and has had night sweats. He also describes a sore throat patient. Denies hemoptysis. Patient is a citizen of [place] [facility]. He is here as a student. He denies smoking whatsoeverno tobacco, marijuana, no electronic smoking devices. He lives with roommates. He denies any sick contacts or any other known sick individuals. His grandfather had TB to which he was exposed years ago. Principal Diagnosis Suspected TB Discharge Exam Constitutional + thin; no acute distress, not in distress and not lethargic Eyes EOM intact bilaterally; no conjunctival abnormality ENMT external ear and nose normal, oropharynx normal Neck trachea midline, no thyromegaly normal visual inspection Respiratory normal respiratory effort, lungs clear to auscultation no respiratory distress Cardiovascular RRR, no murmur, no edema Gastrointestinal (Abdomen) Inspection/Auscultation: abdomen normal to inspection; abdomen not distended Musculoskeletal no cyanosis or clubbing, extremities motor strength 5/5 Skin no rashes, warm and dry Neurologic moves all extremities and awake Psychiatric Orientation: alert, oriented to person and cooperative Discharge Data Allergies Allergy/AdvReac Type Severity Reaction Status Date / Time No Known Drug Allergies Allergy Unknown Unverified 01/27/19 17:32 shellfish derived Allergy Swelling Verified 01/28/19 06:23 of Lip/Tongue/Throat Consultations 01/27/19 17:58 ED Decision to Admit Stat 01/27/19 22:27 Consult Case Management - Discharge Planning Routine Consult Infectious Diseases Routine 01/28/19 10:11 Consult Pulmonology Routine 01/30/19 15:43 Consult Dermatology Routine Procedures Performed Operation Date: 02/01/19 08:00 Actual Procedures p Bronchoscopy (Bilateral) - Rolan Khoury MD Ordered Studies 01/27/19 16:28 CT angio chest PE protocol Stat Hospital Course (1) Cavitary pneumonia: Concern for pulmonary TB vs other anaerobic infection, Nocardia, Actinomyces, Vasculitis. Malignancy in differential. HIV negative. Was on Zosyn while admitted, but ID felt this was not needed on discharge. Briefly on vancomycin, but MRSA swab negative and this was stopped within 24 hours. - AFB sputum x 3 is negative; AFB from bronch also negative - Culture pending. - Quantiferon Gold was negative. - F/u C-ANCA as outpatient; PERRI negative. - [facility] up with [facility] for [facility] treatment. They will visit his home tomorrow. This was confirmed with both ID physician and counter caser. He was informed of this as well. He was instructed to wear a mask when in common areas in his apartment and to not leave the apartment unless he had to. - Recommended by pulmonary to have repeat CXR and/or chest CT in 2-4 weeks to ensure the cavitary lesion is improving. (2) Rash: 2 maculopapular patches on back x 3 months with pruritis. - Seen by dermatology on 01/31: - Chronic lichen simplex - Started fluocinonide by dermatology - Given script on discharge. (3) Leukocytosis: WBC count 16 on admission and now down to 13k, stable. (4) Splenomegaly: Noted on CT chest on admission. Likely related to ongoing likely infectious process but could be related to lymphoma, TB, autoimmune disorder, viral infection. - Follow clinically (5) DVT prophylaxis: SCDs, ambulation Total Time Total Time Spent Total Time Spent (In Minutes): 35 Discharge Plan Discharge Items Patient Disposition: Home - Self-Care Reason For Visit: PNUEMONIA, SUSPECTED TB Discharge Diagnosis: Suspected tuberculosis Activity: Resume your previous activity Non-emergency contact: Primary Care Provider and Specialist Call non-emergency contact if: your symptoms worsen and your temperature is above 101 Follow-up/Referrals: Sharon Sharif DO [Physician] - (Please see Dr. Sharif in 2-3 weeks for follow up.) PCP,NO [Primary Care Provider] - Diet: Regular Addtl Attending Provider Instructions: Please stay in your house and wear a surgical mask when in common areas of the apartment. The [place] [facility] will visit you tomorrow to give you your medications and follow up. Please follow up with Dr. Sharif in her office in 2-3 weeks to have repeat chest x-rays or CT scans to be sure the area in your lung is healing. Pending Studies at Discharge: No Stand-Alone Forms: My [facility] Medications and DC Order Prescriptions: New acetaminophen [Mapap (acetaminophen)] 325 mg Tablet 650 mg PO Q4H PRN (Reason: fever or pain) Qty: 1 RF: 0 isoniazid 300 mg Tablet 300 mg PO QAM Qty: 1 RF: 0 rifampin 300 mg Capsule 600 mg PO QAM Qty: 1 RF: 0 ethambutol [Myambutol] 400 mg Tablet 800 mg PO QAM Qty: 1 RF: 0 pyrazinamide 500 mg Tablet 1,000 mg PO QAM Qty: 1 RF: 0 fluocinonide 0.05 % Ointment 1 applic EXT BID Qty: 15 RF: 0 ranitidine HCl 150 mg Tablet 150 mg PO BID PRN (Reason: Acid Reflux) Qty: 60 RF: 0 pyridoxine (vitamin B6) 50 mg Tablet 50 mg PO QAM Qty: 1 RF: 0 Continued Inhaler Prn 0 mg 1 dose inhalation UNKNOWN PRN (Reason: Shortness Of Breath) RF: 0 Discharge Orders: Discharge Order (Routine); Ordered 02/02/19 Ordered By: Ry Robertson Admission Data Admit Date/Time: 01/27/19 19:21 Attending Provider: Ry Robertson Admit Provider: Olivia Blue Primary Care Provider: PCP,NO Other Providers: Cynthia Wang ; Sharon Sharif ; Bari Jimenes ; Jose Hernández Other Interventions: Discharge Summary Assessment (RN) Last Done: 02/02/19 13:01 DC Date/Time DO NOT enter until pt leaves facility: 02/02/19 14:00
== END 2019-02-02 14:00 | disposition home or self-care (01) | DRG 178 ==
LOC: ED 16:10 → SUATTDRO 19:21 → 2W 19:21

== ENCOUNTER 2019-03-16 16:06 | Inpatient (IN) ==
--- NOTE | 2019-03-16 20:31 | History & Physical Report ---
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 Plan to transfer patient to [facility] in the morning. Dr. Herrera is accepting physician at [facility] liquid oncology. Patient will follow up with Dr. Villalba specialist for lymphoma and [facility]. DVT prophylaxis Lovenox. Patient is a full code Present on Admission?: Yes (2) Shortness of breath: As above Present on Admission?: Yes (3) Leukocytosis: Leukocytosis appears to be reactive due to lymphoma versus infection. Started on antibiotics to cover for possible infection. The rest of the management as above. Present on Admission?: Yes History of Present Illness Chief Complaint: Left upper lobe cavitary mass Primary Care Provider: [facility] Patient is a 23 years old male with not significant past medical history that started to feel tired since July 2018 when he went to see the primary care physician who did x-rays and told patient that appears that he has pneumonia and treated him with p.o. antibiotics. This did not improve patient condition and he continued to feel sicker and sicker. There was a concern that patient had tuberculosis and he completed treatment for TB completely by mid February. Far all results have been negative for acid-fast bacteria or tuberculosis infection. Patient had bronchoscopy with biopsy and endobronchial ultrasound of the cavitary mass in his left lung which showed anaplastic large cell B lymphoma. Dr. Michael Chris who is his oncologist was informed and together with Dr. Jimenes recommended to admit patient to PCU on telemetry for IV antibiotics and then to have transfer to [facility] in [place] where he can be seen by Dr. Silvio Villalba. This was discussed with [facility] and Dr. Ronnie Herrera accepted patient to his service liquid oncology. Would recommend contacting [facility] transfer center in the morning asking to speak to Dr. Herrera and gave him a report about the patient current vital signs and status post receiving vancomycin and Zosyn. Patient denies headache, chest pain, abdominal pain fr equency or urgency. Allergies Allergy/AdvReac Type Severity Reaction Status Date / Time shellfish derived Allergy Swelling Verified 03/15/19 10:52 of Lip/Tongue/Throat Home Medications Home Medications Medication Instructions Recorded Confirmed Type amoxicillin-pot clavulanate 1 tab PO BID #30 tab 03/15/19 Rx [Augmentin] doxycycline hyclate 100 mg PO BID 30 Days #60 cap 03/15/19 Rx sulfamethoxazole-trimethoprim 1 tab PO BID 28 Days #56 tab 03/15/19 Rx [Bactrim DS] Past Med/Surg History Medical History No significant past medical history Shellfish allergy Surgical History No history of previous surgery Family History Other Family history non-contributory Social History Preferred Language: Eritrean Communication Ability: Effective 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 Beliefs That Will Affect Care: None Current Living Situation: Other Current Living Situation Comment: student with roomates Other Information That Helps Us Care for You: No Feels Safe at Home: Yes Safety Concerns: Feels Safe At This Time Smoking Status: Unknown if ever smoked Hx Alcohol Use: No Hx Substance Use: No Review of Systems Review of Systems: All systems reviewed & are unremarkable except as noted in HPI & below Physical Exam Constitutional: WD/WN, vitals as above well developed Feels very tired Eyes: PERRL, conjunctivae normal, anicteric sclerae ENMT: external ear and nose normal, oropharynx normal Neck: trachea midline, no thyromegaly Respiratory: Auscultation: + crackles and + wheezes Cardiovascular: RRR, no murmur, no edema Chest (Breasts): normal inspection/palpation of breasts Gastrointestinal (Abdomen): normal bowel sounds, soft, nontender, no hepatosplenomegaly Musculoskeletal: no cyanosis or clubbing, extremities motor strength 5/5 Skin: no rashes, warm and dry Neurologic: patellar DTR's 2+ bilat, sensation intact Psychiatric: A+Ox3, euthymic affect Lymphatic: no cervical or axillary lymphadenopathy Code Status & VTE Plan VTE Prophylaxis Plan VTE Prophylaxis will be ordered: Yes PG Care Time/CCT Total # of Minutes Spent Total Time Spent with Patient: Total time spent is greater than 50% in coordination of care (as documented) at patient's floor/unit and/or counseling patient:
[2019-03-16] MEDS ORDERED: ACETAMINOPHEN 325 MG TAB PO PRN (20:32)
[2019-03-16] MEDS ORDERED: PIPERACILL/TAZOBAC CONSULT ACTIVE PRN (20:32)
[2019-03-16] MEDS ORDERED: POLYETHYLENE (MIRALAX) 17 GM PACK PO PRN (20:32)
[2019-03-16] MEDS ORDERED: ONDANSETRON INJ 2 MG/ML 2 ML VIAL IV PRN (20:32)
[2019-03-16] MEDS ORDERED: MAGNESIUM HYDROXIDE SUSP 30 ML UDC PO PRN (20:32)
[2019-03-16] MEDS ORDERED: ALUMINUM/MAGNESIUM SUSP 30 ML UDC PO PRN (20:32)
[2019-03-16 20:53] LABS: Basophils # (auto) 0.02 K/uL (0-0.2); Basophils % (auto) 0.1 %; Eosinophils # (auto) 1.45 K/uL (0-0.5); Eosinophils % (auto) 10.9 %; Hematocrit (blood only) 32.6 % (42-52); Hemoglobin 10.8 g/dL (14.0-18.0); Immature Granulocytes # (auto) 0.04 K/uL (0.00-0.02); Immature Granulocytes % (auto) 0.3 %; Lymphocytes # (auto) 1.14 K/uL (1.2-3.4); Lymphocytes % (auto) 8.5 %; Mean Corpuscular Hgb Conc 33.1 g/dL (32-36); Mean Corpuscular Volume 84.5 fL (80-100); Mean Platelet Volume 8.7 fL (7.4-10.4); Monocytes # (auto) 0.62 K/uL (0.11-0.59); Monocytes % (auto) 4.6 %; Neutrophils # (auto) 10.07 K/uL (1.4-6.5); Neutrophils % (auto) 75.6 %; Platelet Count 359 K/uL (130-400); RDW Coefficient of Variation 13.4 % (11.5-14.5); RDW Standard Deviation 41.2 fL (36.4-46.3); Red Blood Count 3.86 M/uL (4.7-6.1); White Blood Count 13.34 K/uL (4.8-10.8)
[2019-03-16] MEDS ORDERED: PIPERACILLIN/TAZOBACTAM 3.375 GM in DEXTROSE 5% 100 ML IV ONE (21:00)
[2019-03-16 21:16] LABS: Albumin Level 2.4 gm/dl (3.4-5.0); BUN Creatinine Ratio 8.7 (10-20); Calcium 8.4 mg/dl (8.5-10.1); Creatinine Clr Calc Pharmacy 95.9 ml/min; Est GFR (African American) 144.4; Est GFR (Non-African American) 124.6; Potassium 3.6 mmol/L (3.5-5.1)
[2019-03-16 21:20] LABS: Albumin Globulin Ratio 0.5 (0.9-2); Bilirubin,Total 0.2 mg/dl (0.2-1); Globulin 4.7 gm/dl (2.5-4.0); Total Protein 7.1 gm/dl (6.4-8.2)
[2019-03-16] MEDS ORDERED: KETOROLAC TROMETHAMINE 15 MG/ML VIAL IV PRN (23:28)
[2019-03-17] MEDS: PIPERACILLIN/TAZOBACTAM 3.375 GM in DEXTROSE 5% 100 ML IV SCH ×3 (01:27→17:22)
[2019-03-17] MEDS: OXYCODONE/ACETAMINOPHEN 5mg/325mg TAB PO PRN ×2 (03:11→22:48)
[2019-03-17] MEDS ORDERED: COUGH DROP (SUGAR FREE) LOZ 24 LOZ/1 BOX BUCCAL ONE (06:09)
[2019-03-17] MEDS ORDERED: SODIUM CHLORIDE 0.9% 1000ML 1,000 ML IV ONE (08:38)
--- NOTE | 2019-03-17 09:01 | Discharge Summary ---
Date of Service March 17, 2019 Admission HPI Per Admitting Provider Patient is a 23 years old male with not significant past medical history that started to feel tired since July 2018 when he went to see the primary care physician who did x-rays and told patient that appears that he has pneumonia and treated him with p.o. antibiotics. This did not improve patient condition and he continued to feel sicker and sicker. There was a concern that patient had tuberculosis and he completed treatment for TB completely by mid February. Far all results have been negative for acid-fast bacteria or tuberculosis infection. Patient had bronchoscopy with biopsy and endobronchial ultrasound of the cavitary mass in his left lung which showed anaplastic large cell B lymphoma. Dr. Michael Chris who is his oncologist was informed and together with Dr. Jimenes recommended to admit patient to PCU on telemetry for IV antibiotics and then to have transfer to [facility] in [place] where he can be seen by Dr. Silvio Villalba. This was discussed with [facility] and Dr. Ronnie Herrera accepted patient to his service liquid oncology. Would recommend contacting [facility] transfer center in the morning asking to speak to Dr. Herrera and gave him a report about the patient current vital signs and status post receiving vancomycin and Zosyn. Patient denies headache, chest pain, abdominal pain frequency or urgency. Admission Exam Per Admitting Provider Constitutional: WD/WN, vitals as above well developed Feels very tired Eyes: PERRL, conjunctivae normal, anicteric sclerae ENMT: external ear and nose normal, oropharynx normal Neck: trachea midline, no thyromegaly Respiratory: Auscultation: + crackles and + wheezes Cardiovascular: RRR, no murmur, no edema Chest (Breasts): normal inspection/palpation of breasts Gastrointestinal (Abdomen): normal bowel sounds, soft, nontender, no hepatosplenomegaly Musculoskeletal: no cyanosis or clubbing, extremities motor strength 5/5 Skin: no rashes, warm and dry Neurologic: patellar DTR's 2+ bilat, sensation intact Psychiatric: A+Ox3, euthymic affect Lymphatic: no cervical or axillary lymphadenopathy Principal Diagnosis Anaplastic Large Cell Lymphoma Discharge Exam General: Resting comfortably HEENT: NC/AT; PERRLA with EOMI; [place] conjunctiva, MMM. No erythema of posterior pharynx Neck: Supple and nontender Cardiac: RRR Lungs: CTA bilaterally Abdomen: Bowel normoactive X 4; Nontender to palpation Extremities: Warm. No edema present Neuro: No focal weakness Skin: No rash Discharge Data Allergies Allergy/AdvReac Type Severity Reaction Status Date / Time shellfish derived Allergy Swelling Verified 03/15/19 10:52 of Lip/Tongue/Throat Consultations 03/17/19 08:52 Burn CD for patient Stat Ordered Studies CXR 03/15/19 Hospital Course (1) Anaplastic large cell lymphoma: Recent TB work up was negative in setting of cavitary lesion. S/p bronch on 03/15; diagnosed with anaplastic large cell lymphoma. Did receive Zosyn/Vanc per pulmonary recs during this admission. BP was low as noted below - likely related to dehydration. Will be transferred to [facility] for further treatment/care -- will f/u with Dr. Villalba, lymphoma specialist. (2) Shortness of breath: In setting of lymphoma. Remained stable on room air. (3) Leukocytosis: In setting of lymphoma. Did receive IV abx during this admission as noted above. Continue to monitor labs following transfer. (4) Anemia: In setting of large cell lymphoma. Did not require transfusion support. (5) Hypotension: SBP 90's - likely related to dehydration. Received 1L bolus prior to transfer. Encourage PO intake as tolerated. Transferred to [facility] on 03/17/19 for treatment of newly diagnosed lymphoma -- accepting physician Dr. Herrera. Total Time Total Time Spent Total Time Spent (In Minutes): >30 minutes Total Time Includes: Examination of the Patient, Discharge Planning, Medication Reconciliation, Communication With Other Providers and Other Discharge Plan Discharge Items Patient Disposition: Transfer Acute Care Hospital Reason For Visit: R LUNG MASS Discharge Diagnosis: Lymphoma Condition on Discharge: Good Activity: Resume your previous activity Non-emergency contact: Primary Care Provider Call non-emergency contact if: you have any medication questions and your symptoms worsen Follow-up/Referrals: [facility] [Primary Care Provider] - Diet: Regular Addtl Attending Provider Instructions: Patient is stable to be discharged to [facility] for treatment of anaplastic large B cell lymphoma. Patient received antibiotics, Vancomycin and Zosyn. Vitals are stable. Does not require any medications in route. Accepting physician is Dr. Salas and specialist is Dr. Heron Villalba Pending Studies at Discharge: No Stand-Alone Forms: My [facility] Skilled Items Patient informed of condition?: Yes DNR: No Discharge Level of Care: Other Communicable Disease: No Discharge Prognosis: Stable Lines: Peripheral IV Urinary Catheter: No Medications and DC Order Prescriptions: Discontinued amoxicillin-pot clavulanate [Augmentin] 875-125 mg tablet 1 tab PO BID Qty: 30 RF: 1 doxycycline hyclate 100 mg capsule 100 mg PO BID 30 Days Qty: 60 RF: 0 sulfamethoxazole-trimethoprim [Bactrim DS] 800-160 mg tablet 1 tab PO BID 28 Days Qty: 56 RF: 0 Discharge Orders: Discharge Order (Routine); Ordered 03/17/19 Ordered By: Jennifer Ackerman Admission Data Admit Date/Time: 03/16/19 19:03 Attending Provider: Melvin Chandra Admit Provider: Genevieve Joy Primary Care Provider: [facility] Supervising Physician Co-Signing Physician Notes Attending note: patient seen and examined with Sangeetha Dan PA-C. I agree with her discharge summary. I personally reviewed the labs and imaging findings. Patient feeling well this morning, no shortness of breath, minimal cough, no severe pain he ate breakfast - Anaplastic B cell lymphoma: newly diagnosed plan for transfer to [facility] for recommendations and to start treatment for full details see the d/c summary
[2019-03-17] MEDS ORDERED: VANCOMYCIN CONSULT ACTIVE PRN (14:09)
--- NOTE | 2019-03-17 14:11 | Hospitalist Progress Note ---
Date of Service March 17, 2019 Assessment & Plan (1) Anaplastic large cell lymphoma: - Recent TB work up was negative in setting of cavitary lesion. - S/p bronch on 03/15; diagnosed with anaplastic large cell lymphoma. - Zosyn/Vanc per pulmonary recs during this admission. - BP was low as noted below - likely related to dehydration. - Will be transferred to [facility] for further treatment/care -- will f/u with Dr. Villalba, lymphoma specialist. Waiting for bed availability. (2) Shortness of breath: - In setting of lymphoma. - Stable on room air. (3) Leukocytosis: - In setting of lymphoma. - IV abx during this admission as noted above. - Continue to monitor labs daily. (4) Anemia: - In setting of large cell lymphoma. - Tranfuse prn. (5) Hypotension: - SBP 90's - likely related to dehydration. - Received 1L bolus; continue NS at 100 cc/hr. Dispo: Discharge to [facility] pending bed availability. Subjective Pt. is doing well overall. SOB is stable, denies SOB at rest. Has mild cough. Plan for transfer to [facility] pending bed availability. Review of Systems Review of Systems: All systems reviewed & are unremarkable except as noted in HPI & below Constitutional: + fatigue, + weakness and + anorexia; no fever and no chills Respiratory: + cough, + dyspnea and + dyspnea on exertion; no wheezing Cardiovascular: no chest pain, no palpitations and no edema Gastrointestinal: no abdominal pain, no nausea and no constipation Genitourinary: no difficulty urinating Physical Exam Physical Exam: General: Resting comfortably HEENT: NC/AT; PERRLA with EOMI; [place] conjunctiva, MMM. No erythema of posterior pharynx Neck: Supple and nontender Cardiac: RRR Lungs: CTA bilaterally Abdomen: Bowel normoactive X 4; Nontender to palpation Extremities: Warm. No edema present Neuro: No focal weakness Skin: No rash Results & Data Vital Signs (Past 12 Hours) Vital Signs Temp Pulse Pulse Resp BP BP Pulse Ox 03/17/19 11:33 36.4 C L 81 17 100/59 L 98 03/17/19 08:49 84 03/17/19 07:54 36.9 C 87 18 94/56 L 96 03/17/19 04:25 36.9 C 96 H 17 95/48 L 94 Pulse Ox 03/17/19 11:33 03/17/19 08:49 94 03/17/19 07:54 03/17/19 04:25 Laboratory Results 03/16/19 03/16/19 03/16/19 Range/Units 22:54 20:42 20:42 WBC (4.8-10.8) K/uL RBC (4.7-6.1) M/uL Hgb (14.0-18.0) g/dL Hct (42-52) % MCV (80-100) fL MCH (25-34) pg MCHC (32-36) g/dL RDW Std Deviation (36.4-46.3) fL RDW Coeff of Renetta (11.5-14.5) % Plt Count (130-400) K/uL MPV (7.4-10.4) fL Immature Gran % (Auto) % Neut % (Auto) % Lymph % (Auto) % [place] % (Auto) % Eos % (Auto) % Baso % (Auto) % Immature Gran # (Auto) (0.00-0.02) K/uL Neut # (Auto) (1.4-6.5) K/uL Lymph # (Auto) (1.2-3.4) K/uL [place] # (Auto) (0.11-0.59) K/uL Eos # (Auto) (0-0.5) K/uL Baso # (Auto) (0-0.2) K/uL Sodium (136-145) mmol/L Potassium (3.5-5.1) mmol/L Chloride (98-107) mmol/L Carbon Dioxide (21-32) mmol/L Anion Gap (3-11) BUN (7-18) mg/dl Creatinine (0.6-1.4) mg/dl Est Cr Clr Drug Dosing ml/min Est GFR ( Amer) Est GFR (Non-Af Amer) BUN/Creatinine Ratio (10-20) Glucose (70-99) mg/dl Lactate 1.4 (0.4-2.0) mmol/L Calcium (8.5-10.1) mg/dl Total Bilirubin (0.2-1) mg/dl AST (15-37) U/L ALT (12-78) U/L Alkaline Phosphatase (45-117) U/L NT-Pro-B Natriuret Pep (0-450) pg/ml Total Protein (6.4-8.2) gm/dl Albumin (3.4-5.0) gm/dl Globulin (2.5-4.0) gm/dl Albumin/Globulin Ratio (0.9-2) Procalcitonin 0.22 (0-0.5) ng/ml Nasal Screen MRSA (PCR) Negative (Negative) Vancomycin Trough (See Comment) mcg/ml 03/16/19 03/16/19 03/16/19 Range/Units 20:42 20:42 20:42 WBC 13.34 H (4.8-10.8) K/uL RBC 3.86 L (4.7-6.1) M/uL Hgb 10.8 L (14.0-18.0) g/dL Hct 32.6 L (42-52) % MCV 84.5 (80-100) fL MCH 28.0 (25-34) pg MCHC 33.1 (32-36) g/dL RDW Std Deviation 41.2 (36.4-46.3) fL RDW Coeff of Renetta 13.4 (11.5-14.5) % Plt Count 359 (130-400) K/uL MPV 8.7 (7.4-10.4) fL Immature Gran % (Auto) 0.3 % Neut % (Auto) 75.6 % Lymph % (Auto) 8.5 % [place] % (Auto) 4.6 % Eos % (Auto) 10.9 % Baso % (Auto) 0.1 % Immature Gran # (Auto) 0.04 H (0.00-0.02) K/uL Neut # (Auto) 10.07 H (1.4-6.5) K/uL Lymph # (Auto) 1.14 L (1.2-3.4) K/uL [place] # (Auto) 0.62 H (0.11-0.59) K/uL Eos # (Auto) 1.45 H (0-0.5) K/uL Baso # (Auto) 0.02 (0-0.2) K/uL Sodium 136 (136-145) mmol/L Potassium 3.6 (3.5-5.1) mmol/L Chloride 102 (98-107) mmol/L Carbon Dioxide 27 (21-32) mmol/L Anion Gap 7.0 (3-11) BUN 7 (7-18) mg/dl Creatinine 0.85 (0.6-1.4) mg/dl Est Cr Clr Drug Dosing 95.9 ml/min Est GFR ( Amer) 144.4 Est GFR (Non-Af Amer) 124.6 BUN/Creatinine Ratio 8.7 L (10-20) Glucose 93 (70-99) mg/dl Lactate (0.4-2.0) mmol/L Calcium 8.4 L (8.5-10.1) mg/dl Total Bilirubin 0.2 (0.2-1) mg/dl AST 34 (15-37) U/L ALT 48 (12-78) U/L Alkaline Phosphatase 78 (45-117) U/L NT-Pro-B Natriuret Pep 327 (0-450) pg/ml Total Protein 7.1 (6.4-8.2) gm/dl Albumin 2.4 L (3.4-5.0) gm/dl Globulin 4.7 H (2.5-4.0) gm/dl Albumin/Globulin Ratio 0.5 L (0.9-2) Procalcitonin (0-0.5) ng/ml Nasal Screen MRSA (PCR) (Negative) Vancomycin Trough < 0.8 (See Comment) mcg/ml PG Care Time/CCT Total # of Minutes Spent Total Time Spent with Patient: Total time spent is greater than 50% in coordination of care (as documented) at patient's floor/unit and/or counseling patient:
--- NOTE | 2019-03-17 14:31 | Pharmacy Report ---
Pharmacy Abx Dose Short Note - Date of Service March 17, 2019 - Assessment & Plan Assessment 23 year old M starting IV Vancomycin for treatment of anaplastic large cell lymphoma, leukocytosis, lung aspirate growing alpha strep (not enterococcus/ S. pneumonia). - Recent TB work up was negative in setting of cavitary lesion. - S/p bronch on 03/15; diagnosed with anaplastic large cell lymphoma. - Zosyn/Vanc per pulmonary recs during this admission. - Will be transferred to [facility] for further treatment/care. Waiting for bed availability. Plan Vancomycin * Loading dose: 1250mg (25mg/kg) IV x 1 dose now * Then 1000 mg (20mg/kg) IV every 8 hours, higher dose for young, small (BMI 17.4kg/m2) patient. * Estimated PK parameters: T1/2 = 8hrs, Hermes = 0.083/hr, Vd = 0.7L/Kg * Goal trough level for lung source: 15 to 20 mcg/mL * Trough level ordered for: 03/18/19 Zosyn - 3.375g IV q8H for CrCl > 20ml/min Pharmacy will continue to follow and will adjust dose/frequency as necessary. Thank you.
[2019-03-17] MEDS: SODIUM CHLORIDE 0.9% 1000ML 1,000 ML IV SCH (14:55)
[2019-03-17] MEDS ORDERED: VANCOMYCIN HCL 1,250 MG in SODIUM CHLORIDE 0.9% 250 ML IV ONE (15:00)
[2019-03-17] MEDS: VANCOMYCIN HCL 1,000 MG in SODIUM CHLORIDE 0.9% 250 ML IV SCH (21:14)
[2019-03-18] MEDS: PIPERACILLIN/TAZOBACTAM 3.375 GM in DEXTROSE 5% 100 ML IV SCH ×3 (01:54→18:19)
[2019-03-18] MEDS: SODIUM CHLORIDE 0.9% 1000ML 1,000 ML IV SCH ×2 (01:54→14:32)
[2019-03-18] MEDS: VANCOMYCIN HCL 1,000 MG in SODIUM CHLORIDE 0.9% 250 ML IV SCH ×2 (05:39→14:32)
[2019-03-18 06:24] LABS: Hemoglobin 10.5 g/dL (14.0-18.0); Mean Corpuscular Hemoglobin 27.6 pg (25-34); Mean Corpuscular Hgb Conc 32.8 g/dL (32-36); Mean Corpuscular Volume 84.2 fL (80-100); Mean Platelet Volume 8.8 fL (7.4-10.4); Platelet Count 335 K/uL (130-400); RDW Coefficient of Variation 13.6 % (11.5-14.5); RDW Standard Deviation 41.4 fL (36.4-46.3); White Blood Count 10.48 K/uL (4.8-10.8)
[2019-03-18 06:53] LABS: BUN Creatinine Ratio 3.8 (10-20); Blood Urea Nitrogen 3 mg/dl (7-18); Carbon Dioxide 29 mmol/L (21-32); Chloride 105 mmol/L (98-107); Est GFR (African American) > 150.0; Est GFR (Non-African American) 130.4; Glucose 93 mg/dl (70-99); Potassium 4.1 mmol/L (3.5-5.1); Sodium 138 mmol/L (136-145)
[2019-03-18] MEDS ORDERED: NYSTATIN 30 ML, DEXAMETHASONE CONC 3.75 MG, DiphenhydrAMINE Syrup 300 MG, ORA-SWEET SYR... PO PRN (08:43)
--- NOTE | 2019-03-18 10:29 | Hospitalist Progress Note ---
Date of Service March 18, 2019 Assessment & Plan (1) Anaplastic large cell lymphoma: - Recent TB work up was negative in setting of cavitary lesion. - S/p bronch on 03/15; diagnosed with anaplastic large cell lymphoma. (Magic swizzle prn pharyngitis related to recent bronchoscopy) - Zosyn/Vanc per pulmonary recs during this admission. - BP is now improving - related to infection vs. dehydration. - Transfer to [facility] for further treatment/care -- will f/u with Dr. Villalba, lymphoma specialist. Waiting for bed availability. - Will need TTE prior to starting chemotherapy (per [facility]); will order study -- ?may not be able to complete today due to limited staff during holiday weekend. (2) Shortness of breath: - In setting of lymphoma. - Has been stable on room air. (3) Leukocytosis: - In setting of lymphoma - IV abx during this admission as noted above. - Continue to monitor labs daily; now improving. (4) Anemia: - In setting of large cell lymphoma. - Tranfuse prn. (5) Hypotension: - SBP 90's on 03/17, likely related to dehydration. SBP now improved to 100's. - Continue NS at 100 cc/hr. Dispo: Discharge to [facility] pending bed availability, likely later this afternoon. Subjective Pt. was tearful last evening due to recently diagnosed lymphoma. He c/o sore throat, likely related to recent bronch -- will order magic swizzle prn. Has intermittent chest pain, likely related to underlying disease state. Plan for transfer to [facility] pending bed availability. Review of Systems Review of Systems: All systems reviewed & are unremarkable except as noted in HPI & below Constitutional: + fatigue, + weakness and + anorexia; no fever and no chills Ear, Nose, Mouth, Throat: + sore throat Respiratory: no cough, no dyspnea, no dyspnea on exertion and no wheezing Cardiovascular: + chest pain; no palpitations and no edema Gastrointestinal: no abdominal pain, no nausea and no constipation Genitourinary: no difficulty urinating Musculoskeletal: no back pain and no joint pain Physical Exam Physical Exam: General: Resting comfortably, no acute distress. HEENT: NC/AT; PERRLA with EOMI; [place] conjunctiva, MMM. Enlarged uvula on exam, mild erythema of oropharynx noted. Neck: Supple and nontender Cardiac: RRR Lungs: CTA bilaterally Abdomen: Bowel normoactive X 4; Nontender to palpation Extremities: Warm. No edema present Neuro: No focal weakness Skin: No rash Results & Data Vital Signs (Past 12 Hours) Vital Signs Temp Pulse Pulse Resp BP Pulse Ox 03/18/19 08:56 80 03/18/19 07:34 36.9 C 85 18 100/63 03/18/19 03:42 36.7 C 77 16 107/62 97 03/17/19 22:58 87 03/17/19 22:46 36.9 C 90 17 103/54 L 96 Laboratory Results 03/18/19 03/18/19 Range/Units 06:09 06:09 WBC 10.48 (4.8-10.8) K/uL RBC 3.80 L (4.7-6.1) M/uL Hgb 10.5 L (14.0-18.0) g/dL Hct 32.0 L (42-52) % MCV 84.2 (80-100) fL MCH 27.6 (25-34) pg MCHC 32.8 (32-36) g/dL RDW Std Deviation 41.4 (36.4-46.3) fL RDW Coeff of Renetta 13.6 (11.5-14.5) % Plt Count 335 (130-400) K/uL MPV 8.8 (7.4-10.4) fL Sodium 138 (136-145) mmol/L Potassium 4.1 (3.5-5.1) mmol/L Chloride 105 (98-107) mmol/L Carbon Dioxide 29 (21-32) mmol/L Anion Gap 4.0 (3-11) BUN 3 L (7-18) mg/dl Creatinine 0.76 (0.6-1.4) mg/dl Est Cr Clr Drug Dosing 109.0 ml/min Est GFR ( Amer) > 150.0 Est GFR (Non-Af Amer) 130.4 BUN/Creatinine Ratio 3.8 L (10-20) Glucose 93 (70-99) mg/dl Calcium 9.0 (8.5-10.1) mg/dl PG Care Time/CCT Total # of Minutes Spent Total Time Spent with Patient: Total time spent is greater than 50% in coordination of care (as documented) at patient's floor/unit and/or counseling patient:
[2019-03-18] MEDS ORDERED: VANCOMYCIN TROUGH ONE (13:30)
--- NOTE | 2019-03-18 14:15 | Pharmacy Report ---
Pharmacy Abx Dose Short Note - Date of Service March 18, 2019 - Assessment & Plan Laboratory Tests 03/16/19 03/16/19 03/18/19 20:42 20:42 06:09 WBC 13.34 H 10.48 Creatinine 0.85 Est Cr Clr Drug Dosing 95.9 Vancomycin Trough 03/18/19 03/18/19 06:09 13:14 WBC Creatinine 0.76 Est Cr Clr Drug Dosing 109.0 Vancomycin Trough 11.2 Assessment 23 year old M receiving IV Vancomycin for treatment of anaplastic large cell lymphoma, leukocytosis, lung aspirate growing alpha strep (not enterococcus/ S. pneumonia). - Recent TB work up was negative in setting of cavitary lesion. - S/p bronch on 03/15; diagnosed with anaplastic large cell lymphoma. - Zosyn/Vanc per pulmonary recs during this admission. - Nasal MRSA swab negative -WBC down today 13 --> 10 - Will be transferred to [facility] for further treatment/care. Waiting for bed availability. Day # 2 of antimicrobial therapy. Plan Vancomycin * Trough level of 11.2 mcg/mL is subtherapeutic * Change to 1000 mg (20mg/kg) IV every 6 hours * Goal trough level for pulmonary: 15 to 20 mcg/mL * Trough level ordered for: 03/19/19 prior to 1400 dose Zosyn extended interval infusion 3.375g IV Q8H for CrCl > 20ml/min Pharmacy will continue to follow and will adjust dose/frequency as necessary. Thank you.
[2019-03-18] MEDS ORDERED: VANCOMYCIN HCL 1,000 MG in SODIUM CHLORIDE 0.9% 250 ML IV SCH (20:00)
[2019-03-19] MEDS ORDERED: VANCOMYCIN TROUGH ONE (13:30)
== END 2019-03-18 19:20 | disposition short-term general hospital (02) | DRG 842 ==
LOC: SUATTDRO 19:03 → 2E 19:03 → INTOOBSV 19:03